=== PATIENT | male | born 1965 | race Caucasian/White ===

== ENCOUNTER 2020-04-25 11:00 | Inpatient (IN) ==
[2020-04-25] MEDS ORDERED: ONDANSETRON INJ 2 MG/ML 2 ML VIAL IV STA (11:51)
[2020-04-25] MEDS ORDERED: SODIUM CHLORIDE 0.9% 1000ML 1,000 ML IV ONE (11:51)
[2020-04-25] MEDS ORDERED: MoRPHine SULFATE 4 MG/ML 1 ML CARP\\VIAL IV STA (11:51)
[2020-04-25 12:08] LABS: Basophils # (auto) 0.01 K/uL (0-0.2); Basophils % (auto) 0.1 %; Eosinophils # (auto) 0.07 K/uL (0-0.5); Eosinophils % (auto) 0.4 %; Hematocrit (blood only) 49.5 % (42-52); Hemoglobin 17.1 g/dL (14.0-18.0); Immature Granulocytes # (auto) 0.04 K/uL (0.00-0.02); Immature Granulocytes % (auto) 0.2 %; Lymphocytes # (auto) 1.18 K/uL (1.2-3.4); Lymphocytes % (auto) 6.8 %; Mean Corpuscular Hemoglobin 30.7 pg (25-34); Mean Corpuscular Hgb Conc 34.5 g/dL (32-36); Mean Corpuscular Volume 88.9 fL (80-100); Mean Platelet Volume 10.5 fL (7.4-10.4); Monocytes # (auto) 1.34 K/uL (0.11-0.59); Monocytes % (auto) 7.7 %; Neutrophils # (auto) 14.83 K/uL (1.4-6.5); Neutrophils % (auto) 84.8 %; Platelet Count 242 K/uL (130-400); RDW Coefficient of Variation 12.8 % (11.5-14.5); RDW Standard Deviation 41.3 fL (36.4-46.3); Red Blood Count 5.57 M/uL (4.7-6.1); White Blood Count 17.47 K/uL (4.8-10.8)
[2020-04-25 12:14] LABS: Albumin Level 4.3 gm/dl (3.4-5.0); BUN Creatinine Ratio 13.6 (10-20); Calcium 9.2 mg/dl (8.5-10.1); Creatinine Clr Calc Pharmacy 74.5 ml/min; Est GFR (African American) 83.5; Potassium 3.8 mmol/L (3.5-5.1)
[2020-04-25 12:17] LABS: Bilirubin,Total 0.9 mg/dl (0.2-1); Globulin 4.2 gm/dl (2.5-4.0); Total Protein 8.5 gm/dl (6.4-8.2)
[2020-04-25] MEDS ORDERED: IOVERSOL 100ml IV ONE (12:48)
--- NOTE | 2020-04-25 13:11 | CT Scan Report ---
CT SCAN OF THE ABDOMEN AND PELVIS WITH IV CONTRAST CLINICAL HISTORY: Generalized abdominal pain. COMPARISON STUDY: No priors. TECHNIQUE: Following the IV administration of 94 cc of Optiray 320, CT scan of the abdomen and pelvi s is performed from the lung bases to the proximal femora. Images are reviewed in the axial, sagittal , and coronal planes. IV contrast was administered without complication. A dose lowering technique wa s utilized adhering to the principles of ALARA. CT DOSE: 450.19 mGy.cm FINDINGS: Lung bases: The heart is normal in size and without pericardial effusion. The lung bases are clear no ting dependent atelectasis. There is a small hiatal hernia. Liver: The contrast-enhanced liver is normal in size, contour, and attenuation. There is no intrahepa tic biliary ductal dilatation. The hepatic veins and portal veins are patent. Gallbladder: Unremarkable. Spleen: Normal in size and attenuation. Pancreas: The pancreas appears edematous. There is peripancreatic stranding and trace fluid, and the appearance is consistent with acute pancreatitis. No organized peripancreatic fluid collection is bernadette ntified. The splenic vein is patent. There is a 1.6 cm low-attenuation focus in the pancreatic tail s een on image #110. This appears to be contiguous with the pancreatic duct. The remainder of the gland enhances homogeneously. Adrenal glands: Unremarkable. Kidneys: The contrast enhanced kidneys are normal in size and without hydronephrosis. The kidneys enh ance symmetrically. Cortical scarring is noted in the right lower pole. Abdominal vasculature: The abdominal aorta is normal in course and caliber. Bowel: There is no bowel obstruction. Mild fecal retention is seen throughout the colon. The appendix is well-visualized and normal. Peritoneum: There is trace abdominopelvic ascites. No intraperitoneal free air is seen. There is a fa t-containing umbilical hernia. Lymphadenopathy: None. Pelvic viscera: The prostate gland is mildly enlarged and heterogeneous. The bladder is normal as vis ualized. Skeletal structures: No lytic or blastic lesions are seen. Chronic posttraumatic deformity is noted i n the right pubic ring. IMPRESSION: 1. Findings are consistent with acute pancreatitis. 2. There is a small volume of abdominopelvic ascites. 3. There is a 1.6 cm low-attenuation focus identified in the pancreatic tail. 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 A small developing pseudocy st could appear similar. Necrosis is considered much less likely due to lack of surrounding inflammat ory change. Attention at follow-up is recommended. 4. The remainder of the pancreas enhances homogeneously. The splenic vein is patent. ACT 112: Negative or not required by law. Electronically signed by: Nicolas Garcia M.D. 04/25/2020 1:10 PM
--- NOTE | 2020-04-25 14:12 | History & Physical Report ---
Date of Service April 25, 2020 Assessment & Plan (1) Acute pancreatitis: This is a 54yo M with no known past medical history who presents with abdominal pain that woke him up yesterday morning found to have acute pancreatitis. -Afebrile and hemodynamically stable. Leukocytosis of 17.47. Lipase elevated at 3702. LFTs wnl -Non-smoker, rarely drinks etoh, still has GB -CT abdomen pelvis with IV contrast showing findings consistent with acute pancreatitis as well as a small volume of abdominopelvic ascites -NPO, LR @ 200 ml/hr, antiemetics, pain control, fasting lipid panel in AM -Routine GI consult (2) Abnormal CT of the abdomen: CTAP also with a 1.6 cm low-attenuation focus identified in the pancreatic tail. 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 Discussed with GI, who will coordinate EUS as outpatient as needed DVT Ppx: SQ lovenox Code status: FULL PCP: Katalina Dispo: Admitted to med/surg. Plan to return home once medically stable. Patient seen in collaboration with Dr. Mcmahon Please see addendum. History of Present Illness Chief Complaint: abd pain Primary Care Provider: Lazaro Darden DO This is a 54yo M with no known past medical history who presents with abdominal pain that woke him up yesterday morning. Describes pain as centrally located with constant aching. Pain is nonradiating. Associated with some nausea but no vomiting or diarrhea. Has had a decreased appetite since then, eating a small amount of a bagel and pizza. Decreased p.o. intake of fluids. Last bowel movement was Friday and patient took MiraLAX yesterday. Is a non-smoker. Drinks alcohol socially but has not had any recently. Still has gallbladder. Denies any previous episodes of pancreatitis. No fever, chills, lightheadedness, visual changes, chest pain, shortness of breath, dysuria or diarrhea. No jaundice or unintentional weight loss. In ED, patient is afebrile and hemodynamically stable. Leukocytosis of 17.47. Lipase elevated at 3702. CT abdomen pelvis with IV contrast showing findings consistent with acute pancreatitis as well as a small volume of abdominopelvic ascites. There is a 1.6 cm low-attenuation focus identified in the pancreatic tail. 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 Allergies Allergy/AdvReac Type Severity Reaction Status Date / Time hornet venom AdvReac Severe Anaphylaxis Unverified 04/25/20 13:51 Home Medications Home Medications Medication Instructions Recorded Confirmed Type acetaminophen [Tylenol Extra 500 mg PO Q6H PRN 04/25/20 04/25/20 History Strength] Past Med/Surg History Medical History Diverticulosis Surgical History History of colonoscopy Family History Other Family history unknown Social History Smoking Status: Never smoker Hx Alcohol Use: Yes Alcohol type: beer Alcohol Intake Frequency: Monthly or Less Hx Substance Use: No Preferred Language: Turkmen Communication Ability: Effective Language Assistant Required: No Beliefs That Will Affect Care: None marital status: Current Living Situation: Spouse current occupational status: unemployed Other Information That Helps Us Care for You: No Feels Safe at Home: Yes Safety Concerns: Feels Safe At This Time Review of Systems Review of Systems: At least ten systems reviewed and negative except as noted in the HPI. Physical Exam Physical Exam: General Appearance: WD/WN, vitals as above, NAD, sitting up in bed, pleasant, conversing easily Head: normocephalic, atraumatic Eyes: normal inspection, PERRL, conjunctivae normal, anicteric sclerae ENT: external ear and nose normal, oropharynx normal Neck: normal visual inspection, trachea midline, no thyromegaly Respiratory: normal respiratory effort, lungs clear to auscultation, no wheeze, rales, rhonchi. No accessory muscle use Cardiovascular: regular rate, rhythm, no murmur appreciated, normal peripheral pulses, no BLE edema. Vessels: no JVD Chest: normal inspection of chest Abdomen/GI: normal bowel sounds, soft, diffusely TTP but no guarding, no hepatosplenomegaly Extremities/Musculoskeletal: no cyanosis or clubbing, extremities motor strength 5/5 Neurologic: PERRL, EOMI, accommodation nl, no face palsy, no dysarthria, CN's II-XI intact bilaterally and moves all extremities Psychiatric: A+Ox3, euthymic affect Skin: no rashes, normal color, warm/dry Results & Data Results & Data ([facility]) Vital Signs (Past 12 Hours) Vital Signs Temp Pulse Pulse Resp BP BP Pulse Ox 04/25/20 13:38 76 18 141/91 H 98 04/25/20 11:14 36.9 C 119 H 16 150/86 H 99 Laboratory Results Short CBC 04/25/20 04/25/20 Range/Units 11:30 11:30 WBC 17.47 H (4.8-10.8) K/uL RBC 5.57 (4.7-6.1) M/uL Hgb 17.1 (14.0-18.0) g/dL Hct 49.5 (42-52) % MCV 88.9 (80-100) fL MCH 30.7 (25-34) pg MCHC 34.5 (32-36) g/dL RDW Std Deviation 41.3 (36.4-46.3) fL RDW Coeff of Marlee 12.8 (11.5-14.5) % Plt Count 242 (130-400) K/uL MPV 10.5 H (7.4-10.4) fL Immature Gran % (Auto) 0.2 % Neut % (Auto) 84.8 % Lymph % (Auto) 6.8 % [place] % (Auto) 7.7 % Eos % (Auto) 0.4 % Baso % (Auto) 0.1 % Neut # (Auto) 14.83 H (1.4-6.5) K/uL Lymph # (Auto) 1.18 L (1.2-3.4) K/uL [place] # (Auto) 1.34 H (0.11-0.59) K/uL Eos # (Auto) 0.07 (0-0.5) K/uL Baso # (Auto) 0.01 (0-0.2) K/uL Immature Gran # (Auto) 0.04 H (0.00-0.02) K/uL Sodium 138 (136-145) mmol/L Potassium 3.8 (3.5-5.1) mmol/L Chloride 106 (98-107) mmol/L Carbon Dioxide 25 (21-32) mmol/L Anion Gap 8.0 (3-11) BUN 16 (7-18) mg/dl Creatinine 1.16 (0.6-1.4) mg/dl Est Cr Clr Drug Dosing 74.5 ml/min Est GFR ( Amer) 83.5 Est GFR (Non-Af Amer) 72.0 BUN/Creatinine Ratio 13.6 (10-20) Glucose 111 H (70-99) mg/dl Calcium 9.2 (8.5-10.1) mg/dl Total Bilirubin 0.9 (0.2-1) mg/dl AST 16 (15-37) U/L ALT 28 (12-78) U/L Alkaline Phosphatase 93 (45-117) U/L Total Protein 8.5 H (6.4-8.2) gm/dl Albumin 4.3 (3.4-5.0) gm/dl Globulin 4.2 H (2.5-4.0) gm/dl Albumin/Globulin Ratio 1.0 (0.9-2) Lipase 3702 H (73-393) U/L BMP 04/25/20 11:30 Sodium 138 Potassium 3.8 Chloride 106 Carbon Dioxide 25 BUN 16 Creatinine 1.16 Glucose 111 H Calcium 9.2 Liver Function 04/25/20 Range/Units 11:30 Total Bilirubin 0.9 (0.2-1) mg/dl AST 16 (15-37) U/L ALT 28 (12-78) U/L Alkaline Phosphatase 93 (45-117) U/L Albumin 4.3 (3.4-5.0) gm/dl Diagnostic Findings CT abd/pelvis with IV contrast: IMPRESSION: 1. Findings are consistent with acute pancreatitis. 2. There is a small volume of abdominopelvic ascites. 3. There is a 1.6 cm low-attenuation focus identified in the pancreatic tail. 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 A small developing pseudocyst could appear similar. Necrosis is considered much less likely due to lack of surrounding inflammatory change. Attention at follow-up is recommended. 4. The remainder of the pancreas enhances homogeneously. The splenic vein is patent. Supervising Physician Co-Signing Physician Notes Pt was seen and examined. Agreed with Saundra PA-C exam, assessment and plan. 54yo M with no significant past medical history presents to the ER with severe abdominal pain. Pt said that the abdominal pain started yesterday. He described it as constant achiness, non radiating, grade 8 out 10. Denies any nausea, vomiting, fever, SOB and chest pain. Pain improved after received IV Morphine in the ER. CT abd/pelvis on admission showed finding consistent with acute pancreatitis. A 1.6 cm low-attenuation focus identified in the pancreatic tail. 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 A small developing pseudocyst could appear similar. Necrosis is considered much less likely due to lack of surrounding inflammatory change. Lipase on admission elevated 3702 and WBC elevated at 17K. Will continue IVF. Will consult GI. CT abd/pelvis report reviewed with patient. Will get an MRCP for further evaluation. Might need outpatient EUS to evaluate the pancreatic tail. Continue pain control and antiemetic prn. Will repeat lipase and CMP in am. Continue monitor closely. MD Salome
[2020-04-25] MEDS ORDERED: MoRPHine SULFATE 4 MG/ML 1 ML CARP\\VIAL IV PRN (14:31)
--- NOTE | 2020-04-25 14:31 | Emergency Department Note ---
History of Present Illness General Chief complaint: Abdominal Pain Stated complaint: UPPER ABD PAIN Time Seen by Provider: 04/25/20 11:21 History of Present Illness Maximum Pain Intensity: 6 54-year-old male who presents to emergency department with complaint of upper central abdominal pain since Friday morning upon awakening. The patient reports that the pain has progressively worsened. He denies any pain radiating into the back or lower abdomen. He denies chest pain or shortness of breath. The patient has had intermittent nausea, but denies any vomiting, diarrhea or urinary symptoms. The patient denies history of reflux or GERD. The patient denies any recent significant NSAIDs, alcohol or caffeine use. The patient denies any alleviating factors for the pain. He reports that the pain does seem to be worsened when walking. He rates his discomfort a 5 out of 10. The p atient reports having a colonoscopy approximately 3 months ago that showed diverticulosis. Home Medications Home Medications Medication Instructions Recorded Confirmed Type acetaminophen [Tylenol Extra 500 mg PO Q6H PRN 04/25/20 04/25/20 History Strength] Allergies Allergy/AdvReac Type Severity Reaction Status Date / Time hornet venom AdvReac Severe Anaphylaxis Unverified 04/25/20 13:51 Past Med/Surg History Medical History Diverticulosis Surgical History History of colonoscopy Family History Other Family history unknown Social History Smoking Status: Never smoker Hx Alcohol Use: Yes Alcohol type: beer Alcohol Intake Frequency: Monthly or Less Hx Substance Use: No Preferred Language: Bahraini Communication Ability: Effective Car Painter Required: No Beliefs That Will Affect Care: None marital status: Current Living Situation: Spouse current occupational status: unemployed Other Information That Helps Us Care for You: No Feels Safe at Home: Yes Safety Concerns: Feels Safe At This Time Review of Systems 10 system review was performed and was negative except for pertinent positives and negatives as indicated in history of present illness Physical Exam Vital Signs Vital Signs - 24 hr 04/25/20 11:14 04/25/20 13:38 Temperature 36.9 C Temperature Source Oral Pulse Rate 119 H Pulse Rate [Apical] 76 Pulse Rhythm [Apical] Regular Pulse Strength [Apical] Normal Respiratory Rate 16 18 Respiratory Effort / Characteristics Non-Labored Spontaneous Non-Labored Respiratory Depth Normal Normal Respiratory Pattern Regular Regular Blood Pressure 150/86 H Blood Pressure [Right Arm] 141/91 H Blood Pressure Mean 107 Blood Pressure Mean [Right Arm] 107 Blood Pressure Position Sitting Blood Pressure Position [Right Arm] Sitting Pulse Oximetry 99 98 Oxygen Delivery Method Room Air Room Air Sepsis Recent Fever Within 48 Hours No Sepsis New/Unexplained Change in Mental Status No Sepsis Action Taken by Nursing No Action Required CONSTITUTIONAL: Healthy and well nourished. Alert and oriented X 3. Patient appears in moderate discomfort. HEENT: Normocephalic, atraumatic. Pupils equal, round and reactive. No scleral icterus or conjunctival injection/pallor. NECK: Full active range of motion without discomfort. LYMPHATICS: No cervical chain adenopathy. RESPIRATORY: Clear to auscultation bilaterally with no wheezing, crackles, rhonchi or stridor. CARDIOVASCULAR: Regular rate and rhythm with no murmurs, rubs or gallops. GASTROINTESTINAL: Bowel sounds present in all quadrants. Examination shows mild epigastric tenderness to palpation. No obvious hepatosplenomegaly. Negative McBurney's point tenderness. Negative CVA tenderness. No rigidity, guarding or rebound. MUSCULOSKELETAL: Full range of motion of all joints without discomfort. INTEGUMENTARY: No rash or other significant dermatologic conditions noted. HEMATOLOGIC: No ecchymosis or petechiae. PSYCHIATRIC: Positive affect. NEUROLOGIC: No focal neurologic deficits noted. Course Course Patient history and physical exam were performed. Nurse's notes were reviewed. Vital signs were reviewed, showing mild tachycardia of 119 bpm. The patient is afebrile. Blood pressure is also elevated at 150/86. IV access was established, and labs were drawn. The patient was hydrated with a liter normal saline, and was administered IV morphine and Zofran for pain and nausea. Review of labs shows an elevated white count of over 17,000 with left shift and bandemia. Additional review of labs shows an elevated lipase of 3702. Remaining electrolytes and LFTs are otherwise unremarkable. CT of the abdomen and pelvis with IV contrast is concerning for pancreatitis, and changes of the pancreatic duct concerning for possible IPMN. A developing pseudocyst was also considered. Findings were discussed with Dr. Reynaga, ED attending physician, who recommended admission. I also discussed the case with the patient, who was also in agreement with admission. [facility] Please see their dictation for further treatment and final disposition. The patient refused any analgesics while under my care. Administered Medications Acetaminophen (Acetaminophen 1000 Mg/100 Ml Iv) 1,000 mg IV Q8H PRN PRN Reason: Pain Stop: 04/28/20 14:46 Last Admin: 04/25/20 14:56 Dose: 1,000 mg Documented by: [id number] Lactated Ringer's (Lr) 1,000 mls @ 200 mls/hr IV .Q5H RICHARD Stop: 05/25/20 14:29 Last Admin: 04/25/20 14:53 Dose: 200 mls/hr Documented by: [id number] Discontinued Medications Sodium Chloride (Nss 1000ml) 1,000 mls @ 999 mls/hr IV .Q1H1M ONE Stop: 04/25/20 12:51 Last Infusion: 04/25/20 12:58 Dose: 0 mls/hr Documented by: [id number] Admin: 04/25/20 11:58 Dose: 999 mls/hr Documented by: [id number] Ioversol (Ioversol 100ml) 94 ml IV ONCE ONE Stop: 04/25/20 12:49 Last Admin: 04/25/20 12:49 Dose: 94 ml Documented by: [id number] Morphine Sulfate (Morphine Sulfate 4 Mg/Ml 1 Ml Carp\Vial) 4 mg IV NOW STA Stop: 04/25/20 11:52 Last Admin: 04/25/20 11:58 Dose: 4 mg Documented by: [id number] Ondansetron HCl (Ondansetron Inj 2 Mg/Ml 2 Ml Vial) 4 mg IV NOW STA Stop: 04/25/20 11:52 Last Admin: 04/25/20 11:58 Dose: 4 mg Documented by: [id number] Medical Decision Making Medical Records Attestation: I reviewed the patient's medical records. Home Medications Current Medication List: was personally reviewed by me Laboratory Data Attestation: I reviewed the patient's lab results. Result diagrams: 04/25/20 11:30 04/25/20 11:30 Lab Results 04/25/20 04/25/20 Range/Units 11:30 11:30 WBC 17.47 H (4.8-10.8) K/uL RBC 5.57 (4.7-6.1) M/uL Hgb 17.1 (14.0-18.0) g/dL Hct 49.5 (42-52) % MCV 88.9 (80-100) fL MCH 30.7 (25-34) pg MCHC 34.5 (32-36) g/dL RDW Std Deviation 41.3 (36.4-46.3) fL RDW Coeff of Marlee 12.8 (11.5-14.5) % Plt Count 242 (130-400) K/uL MPV 10.5 H (7.4-10.4) fL Immature Gran % (Auto) 0.2 % Neut % (Auto) 84.8 % Lymph % (Auto) 6.8 % [place] % (Auto) 7.7 % Eos % (Auto) 0.4 % Baso % (Auto) 0.1 % Neut # (Auto) 14.83 H (1.4-6.5) K/uL Lymph # (Auto) 1.18 L (1.2-3.4) K/uL [place] # (Auto) 1.34 H (0.11-0.59) K/uL Eos # (Auto) 0.07 (0-0.5) K/uL Baso # (Auto) 0.01 (0-0.2) K/uL Immature Gran # (Auto) 0.04 H (0.00-0.02) K/uL Sodium 138 (136-145) mmol/L Potassium 3.8 (3.5-5.1) mmol/L Chloride 106 (98-107) mmol/L Carbon Dioxide 25 (21-32) mmol/L Anion Gap 8.0 (3-11) BUN 16 (7-18) mg/dl Creatinine 1.16 (0.6-1.4) mg/dl Est Cr Clr Drug Dosing 74.5 ml/min Est GFR ( Amer) 83.5 Est GFR (Non-Af Amer) 72.0 BUN/Creatinine Ratio 13.6 (10-20) Glucose 111 H (70-99) mg/dl Calcium 9.2 (8.5-10.1) mg/dl Total Bilirubin 0.9 (0.2-1) mg/dl AST 16 (15-37) U/L ALT 28 (12-78) U/L Alkaline Phosphatase 93 (45-117) U/L Total Protein 8.5 H (6.4-8.2) gm/dl Albumin 4.3 (3.4-5.0) gm/dl Globulin 4.2 H (2.5-4.0) gm/dl Albumin/Globulin Ratio 1.0 (0.9-2) Lipase 3702 H (73-393) U/L Imaging Data Attestation: I personally reviewed and interpreted this imaging study as follows: My Impression: CT of the abdomen and pelvis with IV contrast shows evidence for acute pancreatitis, possible developing pseudocyst and changes of the pancreatic duct. No other acute findings such as diverticulitis, appendicitis or bowel obstruction noted. Radiologist report was also reviewed. Radiologist's Impression: CT SCAN OF THE ABDOMEN AND PELVIS WITH IV CONTRAST CLINICAL HISTORY: Generalized abdominal pain. COMPARISON STUDY: No priors. TECHNIQUE: Following the IV administration of 94 cc of Optiray 320, CT scan of the abdomen and pelvis is performed from the lung bases to the proximal femora. Images are reviewed in the axial, sagittal, and coronal planes. IV contrast was administered without complication. A dose lowering technique was utilized adhering to the principles of ALARA. CT DOSE: 450.19 mGy.cm FINDINGS: Lung bases: The heart is normal in size and without pericardial effusion. The l kimberly bases are clear noting dependent atelectasis. There is a small hiatal hernia. Liver: The contrast-enhanced liver is normal in size, contour, and attenuation. There is no intrahepatic biliary ductal dilatation. The hepatic veins and portal veins are patent. Gallbladder: Unremarkable. Spleen: Normal in size and attenuation. Pancreas: The pancreas appears edematous. There is peripancreatic stranding and trace fluid, and the appearance is consistent with acute pancreatitis. No organized peripancreatic fluid collection is identified. The splenic vein is patent. There is a 1.6 cm low-attenuation focus in the pancreatic tail seen on image #110. This appears to be contiguous with the pancreatic duct. The remainder of the gland enhances homogeneously. Adrenal glands: Unremarkable. Kidneys: The contrast enhanced kidneys are normal in size and without hydronephrosis. The kidneys enhance symmetrically. Cortical scarring is noted in the right lower pole. Abdominal vasculature: The abdominal aorta is normal in course and caliber. Bowel: There is no bowel obstruction. Mild fecal retention is seen throughout the colon. The appendix is well-visualized and normal. Peritoneum: There is trace abdominopelvic ascites. No intraperitoneal free air is seen. There is a fat-containing umbilical hernia. Lymphadenopathy: None. Pelvic viscera: The prostate gland is mildly enlarged and heterogeneous. The bladder is normal as visualized. Skeletal structures: No lytic or blastic lesions are seen. Chronic posttraumatic deformity is noted in the right pubic ring. IMPRESSION: 1. Findings are consistent with acute pancreatitis. 2. There is a small volume of abdominopelvic ascites. 3. There is a 1.6 cm low-attenuation focus identified in the pancreatic tail. 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 A small developing pseudocyst could appear similar. Necrosis is considered much less likely due to lack of surrounding inflammatory change. Attention at follow-up is recommended. 4. The remainder of the pancreas enhances homogeneously. The splenic vein is patent. Blood Pressure Blood Pressure Findings: Elevated blood pressure Blood Pressure Disposition: further management by hospitalist PRASAD Hernandez Patient presents to the emergency department with complaint of persistent upper abdominal pain and nausea. CT imaging today is concerning for pancreatitis. The patient does have an elevated lipase as well. CT imaging does not show any evidence for free air, diverticulitis, cholecystitis or appendicitis. The patient is currently afebrile, but does have an elevated white count of over 17,000 with left shift and bandemia. Infectious etiologies cannot be ruled out, but felt unlikely. I do not suspect cardiopulmonary referred pain. Impression & Plan Acute pancreatitis, Abnormal CT of the abdomen Discharge Plan Visit Data Chief Complaint: Abdominal Pain Stated Complaint: UPPER ABD PAIN ED Provider: Nicolas Reynaga ED Midlevel Provider: Perry Smyth Discharge Problem: Acute pancreatitis, Abnormal CT of the abdomen Patient Disposition: Admitted As Inpatient Discharge Instructions Interventions: ED Discharge Assessment Last Done: 04/25/20 15:13 Discharge Problem: Acute pancreatitis Qualifiers: Pancreatitis type: unspecified pancreatitis type Acute pancreatitis complication: unspecified Qualified Code(s): K85.90 - Acute pancreatitis without necrosis or infection, unspecified
[2020-04-25] MEDS: LACTATED RINGER'S 1,000 ML IV SCH ×2 (14:53→21:04)
[2020-04-25] MEDS: ACETAMINOPHEN 1000 MG/100 ML IV IV PRN ×2 (14:56→23:48)
--- NOTE | 2020-04-25 15:20 | Electrocardiogram Report ---
Test Reason : Blood Pressure : / mmHG Vent. Rate : 091 BPM Atrial Rate : 091 BPM P-R Int : 134 ms QRS Dur : 084 ms QT Int : 348 ms P-R-T Axes : 048 -01 028 degrees QTc Int : 428 ms Normal sinus rhythm Normal ECG No previous ECGs available Confirmed by Jalen Kim ([id number]) on 04/25/2020 3:20:08 PM Referred By: Lazaro Darden Confirmed By:Jalen Kim
[2020-04-25] MEDS ORDERED: ONDANSETRON INJ 2 MG/ML 2 ML VIAL IV PRN (15:40)
[2020-04-25] MEDS ORDERED: POLYETHYLENE (MIRALAX) 17 GM PACK PO PRN (15:40)
[2020-04-25] MEDS: MoRPHine SULFATE 2 MG/ML CARP IV PRN (18:58)
--- NOTE | 2020-04-25 19:04 | Magnetic Resonance Report ---
MR MRCP HISTORY: 54 years-old Male acute pancreatitis, 1.6cm focus on pancreatic tail acute severe abdominal pain with acute pancreatitis COMPARISON: CT abdomen and pelvis 04/25/2020 TECHNIQUE: MRCP without the use of IV contrast was obtained according to institutional protocol. FINDINGS: Docket Clerk localizer images demonstrate no gross extra abdominal abnormality. Study is motion degraded. Tr chicho pleural effusions. Trace abdominal ascites. Mild interstitial and peripancreatic edema compatible with acute pancreatitis. No drainable fluid collection. No pancreatic ductal dilation. No evidence o f pancreatic divisum. There is a 1.6 x 1.4 cm cystic structure within the pancreatic tail is contiguo us with the main pancreatic duct. No intrahepatic or extrahepatic biliary ductal dilation. Normal com mon bile duct, 3 mm. No choledocholithiasis or biliary stricture. Mild distention of the gallbladder. No definite cholelithiasis. No bowel dilation. There is a suspected transient intussusception involv ing a loop of jejunum within the abdominal left upper quadrant, image 21 series 6. Unremarkable soft tissues. IMPRESSION: 1. Motion degraded exam. 2. Acute pancreatitis is redemonstrated. No drainable fluid collection. 3. 1.6 cm cystic structure of the pancreatic tail is suggestive of a sidebranch IPMN. 4. No pancreatic or biliary ductal dilation. ACT 112: Negative or not required by law. The above report was generated using voice recognition software. It may contain grammatical, syntax o r spelling errors. Electronically signed by: Christopher Vizcarra M.D. 04/25/2020 7:02 PM
[2020-04-25 19:18] LABS: Appearance Urine Clear (Clear); Bacteria Urine Automated Negative (Negative); Bilirubin Urine Negative (Negative); Blood Urine Negative (Negative); Color Urine Yellow; Glucose Urine UA Negative (Negative); Ketones Urine 3+ (Negative); Leukocyte Esterase Urine Negative (Negative); Nitrite Urine Negative (Negative); Protein Urine Trace (Negative); RBC Urine Automated 0-4 /hpf (0-4); Specific Gravity Urine > 1.045 (1.000-1.030); Urobilinogen Urine Negative (Negative)
[2020-04-25] MEDS: ENOXAPARIN INJ 40 MG/0.4 ML SYR SQ SCH (21:04)
[2020-04-26] MEDS: LACTATED RINGER'S 1,000 ML IV SCH ×5 (02:15→20:13)
[2020-04-26] MEDS: MoRPHine SULFATE 2 MG/ML CARP IV PRN ×5 (04:39→23:59)
[2020-04-26 07:47] LABS: Hemoglobin 13.4 g/dL (14.0-18.0); Mean Corpuscular Hemoglobin 30.5 pg (25-34); Mean Corpuscular Hgb Conc 34.4 g/dL (32-36); Mean Corpuscular Volume 88.8 fL (80-100); Mean Platelet Volume 9.9 fL (7.4-10.4); Platelet Count 181 K/uL (130-400); RDW Coefficient of Variation 12.5 % (11.5-14.5); RDW Standard Deviation 40.7 fL (36.4-46.3); Red Blood Count 4.39 M/uL (4.7-6.1); White Blood Count 11.93 K/uL (4.8-10.8)
[2020-04-26 08:06] LABS: Albumin Level 3.1 gm/dl (3.4-5.0); BUN Creatinine Ratio 14.2 (10-20); Calcium 8.6 mg/dl (8.5-10.1); Est GFR (African American) 106.2; Est GFR (Non-African American) 91.7
[2020-04-26 08:11] LABS: Albumin Globulin Ratio 0.9 (0.9-2); Bilirubin,Total 1.1 mg/dl (0.2-1); Globulin 3.3 gm/dl (2.5-4.0); Total Protein 6.4 gm/dl (6.4-8.2)
--- NOTE | 2020-04-26 08:16 | Hospitalist Progress Note ---
Date of Service April 26, 2020 Assessment & Plan (1) Acute pancreatitis: This is a 54yo M with no known past medical history who presents with abdominal pain that woke him up yesterday morning found to have acute pancreatitis. -Afebrile and hemodynamically stable. Leukocytosis of 17.47. Lipase elevated at 3702. LFTs wnl -Non-smoker, rarely drinks etoh, still has GB -CT abdomen pelvis with IV contrast showing findings consistent with acute pancreatitis as well as a small volume of abdominopelvic ascites -NPO, LR @ 200 ml/hr, antiemetics, pain control, fasting lipid panel -Routine GI consult (2) Abnormal CT of the abdomen: CTAP also with a 1.6 cm low-attenuation focus identified in the pancreatic tail. 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 Discussed with GI, who will coordinate EUS as outpatient as needed DVT Ppx: SQ lovenox Code status: FULL PCP: Dr. Darden Dispo: Admitted to med/surg. Plan to return home once medically stable. Admission and Anticipated Discharge Date Admission Date: April 25, 2020 Subjective Patient is lying in bed, in no acute distress. He has some abdominal pain, however seems to be better controlled now. No nausea or vomiting. Had fever yesterday, now resolved. No chest pain, shortness of breath. Seen by GI, recommend IV hydration. Review of Systems Review of Systems: All systems reviewed & are unremarkable except as noted in HPI & below Constitutional: + fever (now resolved) and + chills (now resolved) Respiratory: no cough and no dyspnea Cardiovascular: no chest pain and no palpitations Gastrointestinal: + abdominal pain (upper abdominal quadrants), + nausea and + constipation; no vomiting Physical Exam Physical Exam: General Appearance: Middle-aged male lying in bed, in no acute distress, somewhat uncomfortable due to pain Head: normocephalic, atraumatic Eyes: normal inspection, PERRL, EOMI, conjunctivae normal, anicteric sclerae ENT: external ear and nose normal, oropharynx normal Neck: normal visual inspection, trachea midline, no thyromegaly Respiratory: normal respiratory effort, lungs clear to auscultation, no wheeze, rales, rhonchi. No accessory muscle use Cardiovascular: regular rate, rhythm, no murmur appreciated, normal peripheral pulses, no BLE edema. Vessels: no JVD Chest: normal inspection of chest Abdomen/GI: normal bowel sounds, soft, TTP in upper abdominal quadrants, but no guarding Extremities/Musculoskeletal: extremities motor strength 5/5, moves extremities spontaneously Neurologic: PERRL, EOMI, no face palsy, no dysarthria, moves all extremities Psychiatric: A+Ox3, euthymic affect Skin: no rashes, normal color, warm/dry Results & Data Results & Data ([facility]) Vital Signs (Past 12 Hours) Vital Signs Temp Pulse Resp BP Pulse Ox 04/26/20 07:07 37 C 97 H 16 132/83 95 04/25/20 23:00 38.4 C H 107 H 20 142/83 H 94 Laboratory Results 04/26/20 04/26/20 04/25/20 Range/Units 07:29 07:29 19:00 WBC 11.93 H (4.8-10.8) K/uL RBC 4.39 L (4.7-6.1) M/uL Hgb 13.4 L D (14.0-18.0) g/dL Hct 39.0 L (42-52) % MCV 88.8 (80-100) fL MCH 30.5 (25-34) pg MCHC 34.4 (32-36) g/dL RDW Std Deviation 40.7 (36.4-46.3) fL RDW Coeff of Marlee 12.5 (11.5-14.5) % Plt Count 181 (130-400) K/uL MPV 9.9 (7.4-10.4) fL Immature Gran % (Auto) % Neut % (Auto) % Lymph % (Auto) % [place] % (Auto) % Eos % (Auto) % Baso % (Auto) % Neut # (Auto) (1.4-6.5) K/uL Lymph # (Auto) (1.2-3.4) K/uL [place] # (Auto) (0.11-0.59) K/uL Eos # (Auto) (0-0.5) K/uL Baso # (Auto) (0-0.2) K/uL Immature Gran # (Auto) (0.00-0.02) K/uL Sodium 139 (136-145) mmol/L Potassium 4.0 (3.5-5.1) mmol/L Chloride 106 (98-107) mmol/L Carbon Dioxide 23 (21-32) mmol/L Anion Gap 10.0 (3-11) BUN 14 (7-18) mg/dl Creatinine 0.95 (0.6-1.4) mg/dl Est Cr Clr Drug Dosing 91.0 ml/min Est GFR ( Amer) 106.2 Est GFR (Non-Af Amer) 91.7 BUN/Creatinine Ratio 14.2 (10-20) Glucose 78 (70-99) mg/dl Calcium 8.6 (8.5-10.1) mg/dl Total Bilirubin 1.1 H (0.2-1) mg/dl AST 26 (15-37) U/L ALT 25 (12-78) U/L Alkaline Phosphatase 71 (45-117) U/L Total Protein 6.4 D (6.4-8.2) gm/dl Albumin 3.1 L (3.4-5.0) gm/dl Globulin 3.3 (2.5-4.0) gm/dl Albumin/Globulin Ratio 0.9 (0.9-2) Lipase 2037 H (73-393) U/L Urine Color Yellow Urine Appearance Clear (Clear) Urine pH 5.0 (4.5-7.5) Ur Specific [place] > 1.045 H (1.000-1.030) Urine Protein Trace H (Negative) Urine Glucose (UA) Negative (Negative) Urine Ketones 3+ H (Negative) Urine Blood Negative (Negative) Urine Nitrite Negative (Negative) Urine Bilirubin Negative (Negative) Urine Urobilinogen Negative (Negative) Ur Leukocyte Esterase Negative (Negative) Urine WBC (Auto) 1-5 (0-5) /hpf Urine RBC (Auto) 0-4 (0-4) /hpf U Hyaline Cast (Auto) 1-5 (0-5) /lpf U Epithel Cells (Auto) 5-10 H (0-5) /lpf Urine Bacteria (Auto) Negative (Negative) 04/25/20 04/25/20 Range/Units 11:30 11:30 WBC 17.47 H (4.8-10.8) K/uL RBC 5.57 (4.7-6.1) M/uL Hgb 17.1 (14.0-18.0) g/dL Hct 49.5 (42-52) % MCV 88.9 (80-100) fL MCH 30.7 (25-34) pg MCHC 34.5 (32-36) g/dL RDW Std Deviation 41.3 (36.4-46.3) fL RDW Coeff of Marlee 12.8 (11.5-14.5) % Plt Count 242 (130-400) K/uL MPV 10.5 H (7.4-10.4) fL Immature Gran % (Auto) 0.2 % Neut % (Auto) 84.8 % Lymph % (Auto) 6.8 % [place] % (Auto) 7.7 % Eos % (Auto) 0.4 % Baso % (Auto) 0.1 % Neut # (Auto) 14.83 H (1.4-6.5) K/uL Lymph # (Auto) 1.18 L (1.2-3.4) K/uL [place] # (Auto) 1.34 H (0.11-0.59) K/uL Eos # (Auto) 0.07 (0-0.5) K/uL Baso # (Auto) 0.01 (0-0.2) K/uL Immature Gran # (Auto) 0.04 H (0.00-0.02) K/uL Sodium 138 (136-145) mmol/L Potassium 3.8 (3.5-5.1) mmol/L Chloride 106 (98-107) mmol/L Carbon Dioxide 25 (21-32) mmol/L Anion Gap 8.0 (3-11) BUN 16 (7-18) mg/dl Creatinine 1.16 (0.6-1.4) mg/dl Est Cr Clr Drug Dosing 74.5 ml/min Est GFR ( Amer) 83.5 Est GFR (Non-Af Amer) 72.0 BUN/Creatinine Ratio 13.6 (10-20) Glucose 111 H (70-99) mg/dl Calcium 9.2 (8.5-10.1) mg/dl Total Bilirubin 0.9 (0.2-1) mg/dl AST 16 (15-37) U/L ALT 28 (12-78) U/L Alkaline Phosphatase 93 (45-117) U/L Total Protein 8.5 H (6.4-8.2) gm/dl Albumin 4.3 (3.4-5.0) gm/dl Globulin 4.2 H (2.5-4.0) gm/dl Albumin/Globulin Ratio 1.0 (0.9-2) Lipase 3702 H (73-393) U/L Urine Color Urine Appearance (Clear) Urine pH (4.5-7.5) Ur Specific [place] (1.000-1.030) Urine Protein (Negative) Urine Glucose (UA) (Negative) Urine Ketones (Negative) Urine Blood (Negative) Urine Nitrite (Negative) Urine Bilirubin (Negative) Urine Urobilinogen (Negative) Ur Leukocyte Esterase (Negative) Urine WBC (Auto) (0-5) /hpf Urine RBC (Auto) (0-4) /hpf U Hyaline Cast (Auto) (0-5) /lpf U Epithel Cells (Auto) (0-5) /lpf Urine Bacteria (Auto) (Negative) Medications Administered Current Inpatient Medications Acetaminophen (Acetaminophen 1000 Mg/100 Ml Iv) 1,000 mg IV Q8H PRN PRN Reason: Pain Stop: 04/28/20 14:46 Last Admin: 04/25/20 23:48 Dose: 1,000 mg Documented by: Enoxaparin Sodium (Enoxaparin Inj 40 Mg/0.4 Ml Syr) 40 mg SQ HS RICHARD Stop: 05/25/20 20:59 Last Admin: 04/25/20 21:04 Dose: 40 mg Documented by: Lactated Ringer's (Lr) 1,000 mls @ 200 mls/hr IV .Q5H RICHARD Stop: 05/25/20 14:29 Last Admin: 04/26/20 07:25 Dose: 200 mls/hr Documented by: Morphine Sulfate (Morphine Sulfate 2 Mg/Ml Carp) 2 mg IV Q3H PRN PRN Reason: Pain Stop: 05/09/20 15:39 Last Admin: 04/26/20 04:39 Dose: 2 mg Documented by: Ondansetron HCl (Ondansetron Inj 2 Mg/Ml 2 Ml Vial) 4 mg IV Q6H PRN PRN Reason: Nausea Stop: 05/25/20 15:39 Polyethylene Glycol (Polyethylene (Miralax) 17 Gm Pack) 17 gm PO DAILY PRN PRN Reason: Constipation Stop: 05/25/20 15:39
--- NOTE | 2020-04-26 09:53 | Gastrointestinal Consultation ---
Date of Consultation April 26, 2020 Assessment & Plan (1) Acute pancreatitis: 54 year old male with abrupt onset upper abd pain that woke him from his sleep both biochemical and diagnostic imaging concerning for acute pancreatitis. No gallstones or biliary disease appreciated on CT or MR. LFTs normal. He does have a panc tail IPMN vs cyst. No prior weight loss. Panc Etiology unclear - Check triglycerides - NPO for bowel rest - Continue IV LR for 48 hours - antietmics PRN - analgesia PRN - Will need OP EUS in 4-6 weeks Thank you for allowing us to participate in the care of this patient. Please call with any acute changes, questions or concerns. Please see addendum below with additional recommendation from my supervising physician. Supervising Physician Co-Signing Physician Notes I have personally seen and examined the patient with LACY Hardin. Her note reflects my exam and findings. I agree with her impression and plan. The IPMN is most likely cause since he has no ETOH hx and is on no meds. Cont IV hydration; great response to current hydration ( H/H and creatinine drop). Jimmie Piña M.D. History of Present Illness Reason for Consultation: Pancreatitis Requesting Physician: Chayito Attending Physician: Octavio Stratton MD History of Present Illness 54 year old male without any past medical history who presents with abd pain that woke him up from his sleep. Suggests he has never had this pain before. Constant. Sharp and acing. Does not radiate. Associated with nausea but no vomiting. No GERD. Has been constipated since pain started. In ED, patient is afebrile and hemodynamically stable. Leukocytosis of 17.47. Lipase elevated at 3702. CT abdomen pelvis with IV contrast showing findings consistent with acute pancreatitis as well as a small volume of abdominopelvic ascites. There is a 1.6 cm low-attenuation focus identified in the pancreatic tail. 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 MRCP review this AM without any acute biliary concerns or obstruction. LFTs normal. No new meds No herbals No OTCs No street drugs No tobacco Uses ETOH rarely, last use was about 1 months ago Allergies Allergy/AdvReac Type Severity Reaction Status Date / Time hornet venom AdvReac Severe Anaphylaxis Unverified 04/25/20 13:51 Home Medications Home Medications Medication Instructions Recorded Confirmed Type acetaminophen [Tylenol Extra 500 mg PO Q6H PRN 04/25/20 04/25/20 History Strength] Patient History Medical History Diverticulosis Surgical History History of colonoscopy Family History Other Family history unknown Social History Smoking Status: Never smoker Hx Alcohol Use: Yes Alcohol type: beer Alcohol Intake Frequency: Monthly or Less Hx Substance Use: No Preferred Language: Bengali Communication Ability: Effective Escrow Representative Required: No Beliefs That Will Affect Care: None marital status: Current Living Situation: Spouse current occupational status: unemployed Other Information That Helps Us Care for You: No Feels Safe at Home: Yes Safety Concerns: Feels Safe At This Time Review of Systems Constitutional: no fever and no fatigue Respiratory: no cough and no dyspnea Cardiovascular: no chest pain and no dyspnea Gastrointestinal: + abdominal pain and + constipation; no coffee ground emesis, no hematemesis, no blood in stools and no melena Physical Exam Constitutional: well developed and well nourished; no acute distress Neck: trachea midline Respiratory: normal respiratory effort Gastrointestinal (Abdomen): Inspection/Auscultation: normal bowel sounds Percussion/Palpation: + abdomen tender and abdomen soft; no guarding and abdomen not rigid Skin: no rashes, warm and dry Results & Data ([facility]) Vital Signs (Past 12 Hours) Vital Signs Temp Pulse Resp BP Pulse Ox 04/26/20 07:07 37 C 97 H 16 132/83 95 04/25/20 23:00 38.4 C H 107 H 20 142/83 H 94 Laboratory Results 04/26/20 04/26/20 04/25/20 Range/Units 07:29 07:29 19:00 WBC 11.93 H (4.8-10.8) K/uL RBC 4.39 L (4.7-6.1) M/uL Hgb 13.4 L D (14.0-18.0) g/dL Hct 39.0 L (42-52) % MCV 88.8 (80-100) fL MCH 30.5 (25-34) pg MCHC 34.4 (32-36) g/dL RDW Std Deviation 40.7 (36.4-46.3) fL RDW Coeff of Marlee 12.5 (11.5-14.5) % Plt Count 181 (130-400) K/uL MPV 9.9 (7.4-10.4) fL Immature Gran % (Auto) % Neut % (Auto) % Lymph % (Auto) % [place] % (Auto) % Eos % (Auto) % Baso % (Auto) % Neut # (Auto) (1.4-6.5) K/uL Lymph # (Auto) (1.2-3.4) K/uL [place] # (Auto) (0.11-0.59) K/uL Eos # (Auto) (0-0.5) K/uL Baso # (Auto) (0-0.2) K/uL Immature Gran # (Auto) (0.00-0.02) K/uL Sodium 139 (136-145) mmol/L Potassium 4.0 (3.5-5.1) mmol/L Chloride 106 (98-107) mmol/L Carbon Dioxide 23 (21-32) mmol/L Anion Gap 10.0 (3-11) BUN 14 (7-18) mg/dl Creatinine 0.95 (0.6-1.4) mg/dl Est Cr Clr Drug Dosing 91.0 ml/min Est GFR ( Amer) 106.2 Est GFR (Non-Af Amer) 91.7 BUN/Creatinine Ratio 14.2 (10-20) Glucose 78 (70-99) mg/dl Calcium 8.6 (8.5-10.1) mg/dl Total Bilirubin 1.1 H (0.2-1) mg/dl AST 26 (15-37) U/L ALT 25 (12-78) U/L Alkaline Phosphatase 71 (45-117) U/L Total Protein 6.4 D (6.4-8.2) gm/dl Albumin 3.1 L (3.4-5.0) gm/dl Globulin 3.3 (2.5-4.0) gm/dl Albumin/Globulin Ratio 0.9 (0.9-2) Lipase 2037 H (73-393) U/L Urine Color Yellow Urine Appearance Clear (Clear) Urine pH 5.0 (4.5-7.5) Ur Specific [place] > 1.045 H (1.000-1.030) Urine Protein Trace H (Negative) Urine Glucose (UA) Negative (Negative) Urine Ketones 3+ H (Negative) Urine Blood Negative (Negative) Urine Nitrite Negative (Negative) Urine Bilirubin Negative (Negative) Urine Urobilinogen Negative (Negative) Ur Leukocyte Esterase Negative (Negative) Urine WBC (Auto) 1-5 (0-5) /hpf Urine RBC (Auto) 0-4 (0-4) /hpf U Hyaline Cast (Auto) 1-5 (0-5) /lpf U Epithel Cells (Auto) 5-10 H (0-5) /lpf Urine Bacteria (Auto) Negative (Negative) 04/25/20 04/25/20 Range/Units 11:30 11:30 WBC 17.47 H (4.8-10.8) K/uL RBC 5.57 (4.7-6.1) M/uL Hgb 17.1 (14.0-18.0) g/dL Hct 49.5 (42-52) % MCV 88.9 (80-100) fL MCH 30.7 (25-34) pg MCHC 34.5 (32-36) g/dL RDW Std Deviation 41.3 (36.4-46.3) fL RDW Coeff of Marlee 12.8 (11.5-14.5) % Plt Count 242 (130-400) K/uL MPV 10.5 H (7.4-10.4) fL Immature Gran % (Auto) 0.2 % Neut % (Auto) 84.8 % Lymph % (Auto) 6.8 % [place] % (Auto) 7.7 % Eos % (Auto) 0.4 % Baso % (Auto) 0.1 % Neut # (Auto) 14.83 H (1.4-6.5) K/uL Lymph # (Auto) 1.18 L (1.2-3.4) K/uL [place] # (Auto) 1.34 H (0.11-0.59) K/uL Eos # (Auto) 0.07 (0-0.5) K/uL Baso # (Auto) 0.01 (0-0.2) K/uL Immature Gran # (Auto) 0.04 H (0.00-0.02) K/uL Sodium 138 (136-145) mmol/L Potassium 3.8 (3.5-5.1) mmol/L Chloride 106 (98-107) mmol/L Carbon Dioxide 25 (21-32) mmol/L Anion Gap 8.0 (3-11) BUN 16 (7-18) mg/dl Creatinine 1.16 (0.6-1.4) mg/dl Est Cr Clr Drug Dosing 74.5 ml/min Est GFR ( Amer) 83.5 Est GFR (Non-Af Amer) 72.0 BUN/Creatinine Ratio 13.6 (10-20) Glucose 111 H (70-99) mg/dl Calcium 9.2 (8.5-10.1) mg/dl Total Bilirubin 0.9 (0.2-1) mg/dl AST 16 (15-37) U/L ALT 28 (12-78) U/L Alkaline Phosphatase 93 (45-117) U/L Total Protein 8.5 H (6.4-8.2) gm/dl Albumin 4.3 (3.4-5.0) gm/dl Globulin 4.2 H (2.5-4.0) gm/dl Albumin/Globulin Ratio 1.0 (0.9-2) Lipase 3702 H (73-393) U/L Urine Color Urine Appearance (Clear) Urine pH (4.5-7.5) Ur Specific [place] (1.000-1.030) Urine Protein (Negative) Urine Glucose (UA) (Negative) Urine Ketones (Negative) Urine Blood (Negative) Urine Nitrite (Negative) Urine Bilirubin (Negative) Urine Urobilinogen (Negative) Ur Leukocyte Esterase (Negative) Urine WBC (Auto) (0-5) /hpf Urine RBC (Auto) (0-4) /hpf U Hyaline Cast (Auto) (0-5) /lpf U Epithel Cells (Auto) (0-5) /lpf Urine Bacteria (Auto) (Negative) (1) Acute pancreatitis Acute pancreatitis complication: unspecified Pancreatitis type: unspecified pancreatitis type Qualified Code(s): K85.90 - Acute pancreatitis without necrosis or infection, unspecified
[2020-04-26 12:08] LABS: Chol HDL Ratio 4; Cholesterol 133 mg/dl (0-200); HDL Cholesterol 34 mg/dl; LDL Cholesterol Calculated 74 mg/dl; Triglycerides 123 mg/dl (0-150); VLDL Cholesterol 25 mg/dl
[2020-04-26] MEDS: ENOXAPARIN INJ 40 MG/0.4 ML SYR SQ SCH (20:14)
[2020-04-27] MEDS: LACTATED RINGER'S 1,000 ML IV SCH ×6 (03:17→23:15)
[2020-04-27] MEDS: MoRPHine SULFATE 2 MG/ML CARP IV PRN ×5 (04:34→23:16)
[2020-04-27 06:22] LABS: Hematocrit (blood only) 38.4 % (42-52); Hemoglobin 13.4 g/dL (14.0-18.0); Mean Corpuscular Hemoglobin 30.6 pg (25-34); Mean Corpuscular Hgb Conc 34.9 g/dL (32-36); Mean Corpuscular Volume 87.7 fL (80-100); Mean Platelet Volume 9.7 fL (7.4-10.4); Platelet Count 182 K/uL (130-400); RDW Coefficient of Variation 12.5 % (11.5-14.5); RDW Standard Deviation 40.4 fL (36.4-46.3); Red Blood Count 4.38 M/uL (4.7-6.1); White Blood Count 11.62 K/uL (4.8-10.8)
[2020-04-27 06:52] LABS: Albumin Level 2.9 gm/dl (3.4-5.0); BUN Creatinine Ratio 10.3 (10-20); Calcium 8.4 mg/dl (8.5-10.1); Est GFR (African American) 106.2; Est GFR (Non-African American) 91.7; Potassium 4.1 mmol/L (3.5-5.1)
[2020-04-27 06:55] LABS: Albumin Globulin Ratio 0.8 (0.9-2); Bilirubin,Total 0.9 mg/dl (0.2-1); Globulin 3.8 gm/dl (2.5-4.0); Total Protein 6.7 gm/dl (6.4-8.2)
--- NOTE | 2020-04-27 09:21 | Gastroenterology Progress Note ---
Date of Service April 27, 2020 Assessment & Plan (1) Acute pancreatitis: 54 year old male with abrupt onset upper abd pain that woke him from his sleep both biochemical and diagnostic imaging concerning for acute pancreatitis. No gallstones or biliary disease appreciated on CT or MR. LFTs normal. He does have a panc tail IPMN vs cyst. No prior weight loss. Panc Etiology unclear - Trial of clear liquids then can advance to low fat diet as tolerated - Continue IV LR for 48 hours - antietmics PRN - analgesia PRN - Will need OP EUS in 4-6 weeks Thank you for allowing us to participate in the care of this patient. Please call with any acute changes, questions or concerns. Please see addendum below with additional recommendation from my supervising physician. Admission and Anticipated Discharge Date Admission Date: April 25, 2020 Supervising Physician Co-Signing Physician Notes I have personally seen and examined the patient with LACY Hardin. Her note reflects my exam and findings. I agree with her impression and plan. Feeling much better. Wants to eat. Will advance diet as tolerates. Jimmie Piña M.D. Subjective Pt was seen and evaluated, chart reviewed. Persistent abd pain No nausea/vomiting Passing gas No BM yet. No fever, chills, CP, SOB. Review of Systems Gastrointestinal: + abdominal pain and + constipation; no coffee ground emesis, no hematemesis, no blood in stools and no melena Physical Exam Constitutional: well developed and well nourished; no acute distress Neck: trachea midline Respiratory: normal respiratory effort Gastrointestinal (Abdomen): Inspection/Auscultation: normal bowel sounds Percussion/Palpation: + abdomen tender and abdomen soft; no guarding and abdomen not rigid Skin: no rashes, warm and dry Results & Data ([facility]) Vital Signs (Past 12 Hours) Vital Signs Temp Pulse Resp BP BP Pulse Ox 04/27/20 08:15 37.2 C 85 18 136/80 95 04/26/20 22:24 37 C 88 20 147/82 H 95 (1) Acute pancreatitis Acute pancreatitis complication: unspecified Pancreatitis type: unspecified pancreatitis type Qualified Code(s): K85.90 - Acute pancreatitis without necrosis or infection, unspecified
--- NOTE | 2020-04-27 15:52 | Hospitalist Progress Note ---
Date of Service April 27, 2020 Assessment & Plan (1) Acute pancreatitis: This is a 54yo M with no known past medical history who presents with abdominal pain that woke him up yesterday morning found to have acute pancreatitis. -Afebrile and hemodynamically stable. Leukocytosis of 17.47. Lipase elevated at 3702. LFTs wnl -Non-smoker, rarely drinks etoh, still has GB -CT abdomen pelvis with IV contrast showing findings consistent with acute pancreatitis as well as a small volume of abdominopelvic ascites -Was on n.p.o. and receiving clears following that -Lipid profile has been unremarkable -Lipase level has normalized as of this morning -Appreciate GI input and recommendation -Advance diet as tolerated -Likely discharge tomorrow (2) Abnormal CT of the abdomen: CTAP also with a 1.6 cm low-attenuation focus identified in the pancreatic tail. 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 Discussed with GI, who will coordinate EUS as outpatient as needed -GI input and recommendation -We will have outpatient EUS DVT Ppx: SQ lovenox Code status: FULL PCP: Dr. Darden Dispo: Admitted to med/surg. Plan to return home once medically stable. Admission and Anticipated Discharge Date Admission Date: April 25, 2020 Subjective 04/27/2020 The patient was seen and examined in medical floor He still complains to have abdominal pain without any nausea and or vomiting He has been tolerating clears orally Denies any fever and/or chills Review of Systems Review of Systems: All systems reviewed and are unremarkable except as noted below Gastrointestinal: + abdominal pain; no nausea and no vomiting Bowel not moved Physical Exam Physical Exam: Lying in bed with some discomfort due to abdominal pain Constitutional: well developed, well nourished, + acute distress and + ill appearing Eyes: PERRL, conjunctivae normal, anicteric sclerae ENMT: external ear and nose normal, oropharynx normal Neck: trachea midline, no thyromegaly Respiratory: normal respiratory effort and + respiratory distress Auscultation: lungs clear to auscultation bilaterally Cardiovascular: Rate/Rhythm: regular rate and regular rhythm Heart Sounds: no murmur Palpation: normal PMI Gastrointestinal (Abdomen): Inspection/Auscultation: abdomen normal to inspection, + abdomen distended and normal bowel sounds Percussion/Palpation: + abdomen tender (Minimally in the epigastrium); no guarding Neurologic: moves all extremities; no focal motor deficits Lymphatic: no cervical or axillary lymphadenopathy Results & Data Results & Data ([facility]) Vital Signs (Past 12 Hours) Vital Signs Temp Pulse Resp BP Pulse Ox 04/27/20 15:08 36.9 C 91 H 18 151/92 H 97 04/27/20 08:15 37.2 C 85 18 136/80 95 Laboratory Results Short CBC 04/27/20 Range/Units 06:00 WBC 11.62 H (4.8-10.8) K/uL Hgb 13.4 L (14.0-18.0) g/dL Hct 38.4 L (42-52) % Plt Count 182 (130-400) K/uL BMP 04/27/20 06:00 Sodium 136 Potassium 4.1 Chloride 104 Carbon Dioxide 25 BUN 10 Creatinine 0.95 Glucose 82 Calcium 8.4 L Liver Function 04/27/20 Range/Units 06:00 Total Bilirubin 0.9 (0.2-1) mg/dl AST 14 L (15-37) U/L ALT 19 (12-78) U/L Alkaline Phosphatase 72 (45-117) U/L Albumin 2.9 L (3.4-5.0) gm/dl Medications Administered Current Inpatient Medications Acetaminophen (Acetaminophen 1000 Mg/100 Ml Iv) 1,000 mg IV Q8H PRN PRN Reason: Pain Stop: 04/28/20 14:46 Last Admin: 04/25/20 23:48 Dose: 1,000 mg Documented by: Enoxaparin Sodium (Enoxaparin Inj 40 Mg/0.4 Ml Syr) 40 mg SQ HS RICHARD Stop: 05/25/20 20:59 Last Admin: 04/26/20 20:14 Dose: 40 mg Documented by: Lactated Ringer's (Lr) 1,000 mls @ 200 mls/hr IV .Q5H RICHARD Stop: 05/25/20 14:29 Last Admin: 04/27/20 13:14 Dose: 200 mls/hr Documented by: Morphine Sulfate (Morphine Sulfate 2 Mg/Ml Carp) 2 mg IV Q3H PRN PRN Reason: Pain Stop: 05/09/20 15:39 Last Admin: 04/27/20 11:50 Dose: 2 mg Documented by: Ondansetron HCl (Ondansetron Inj 2 Mg/Ml 2 Ml Vial) 4 mg IV Q6H PRN PRN Reason: Nausea Stop: 05/25/20 15:39 Polyethylene Glycol (Polyethylene (Miralax) 17 Gm Pack) 17 gm PO DAILY PRN PRN Reason: Constipation Stop: 05/25/20 15:39
[2020-04-27] MEDS: ENOXAPARIN INJ 40 MG/0.4 ML SYR SQ SCH (21:50)
[2020-04-28] MEDS: LACTATED RINGER'S 1,000 ML IV SCH ×2 (04:12→09:14)
[2020-04-28] MEDS: MoRPHine SULFATE 2 MG/ML CARP IV PRN (04:12)
[2020-04-28 05:53] LABS: Basophils # (auto) 0.02 K/uL (0-0.2); Basophils % (auto) 0.2 %; Eosinophils # (auto) 0.42 K/uL (0-0.5); Eosinophils % (auto) 4.2 %; Hematocrit (blood only) 36.5 % (42-52); Hemoglobin 12.8 g/dL (14.0-18.0); Immature Granulocytes # (auto) 0.02 K/uL (0.00-0.02); Immature Granulocytes % (auto) 0.2 %; Lymphocytes # (auto) 0.88 K/uL (1.2-3.4); Lymphocytes % (auto) 8.8 %; Mean Corpuscular Hemoglobin 30.7 pg (25-34); Mean Corpuscular Hgb Conc 35.1 g/dL (32-36); Mean Corpuscular Volume 87.5 fL (80-100); Mean Platelet Volume 9.7 fL (7.4-10.4); Monocytes # (auto) 0.92 K/uL (0.11-0.59); Monocytes % (auto) 9.2 %; Neutrophils # (auto) 7.76 K/uL (1.4-6.5); Neutrophils % (auto) 77.4 %; Platelet Count 188 K/uL (130-400); RDW Coefficient of Variation 12.6 % (11.5-14.5); RDW Standard Deviation 40.6 fL (36.4-46.3); Red Blood Count 4.17 M/uL (4.7-6.1); White Blood Count 10.02 K/uL (4.8-10.8)
[2020-04-28 06:11] LABS: Albumin Level 2.7 gm/dl (3.4-5.0); BUN Creatinine Ratio 6.2 (10-20); Calcium 8.6 mg/dl (8.5-10.1); Est GFR (African American) 111.9; Est GFR (Non-African American) 96.6; Magnesium 2.2 mg/dl (1.8-2.4); Potassium 3.9 mmol/L (3.5-5.1)
[2020-04-28 06:13] LABS: Albumin Globulin Ratio 0.8 (0.9-2); Bilirubin,Total 0.9 mg/dl (0.2-1); Globulin 3.6 gm/dl (2.5-4.0); Phosphorus 2.3 mg/dl (2.5-4.9); Total Protein 6.3 gm/dl (6.4-8.2)
[2020-04-28] MEDS: ACETAMINOPHEN 1000 MG/100 ML IV IV PRN (08:16)
--- NOTE | 2020-04-28 11:00 | Hospitalist Progress Note ---
Date of Service April 28, 2020 Assessment & Plan (1) Acute pancreatitis: This is a 54yo M with no known past medical history who presents with abdominal pain that woke him up yesterday morning found to have acute pancreatitis. -Afebrile and hemodynamically stable. Leukocytosis of 17.47. Lipase elevated at 3702. LFTs wnl -Non-smoker, rarely drinks etoh, still has GB -CT abdomen pelvis with IV contrast showing findings consistent with acute pancreatitis as well as a small volume of abdominopelvic ascites -Was on n.p.o. and receiving clears following that -Lipid profile has been unremarkable -Lipase level has normalized as of this morning -Appreciate GI input and recommendation -Tolerating regular diet -Has been ambulating without any difficulties -He will be discharged home this afternoon (2) Abnormal CT of the abdomen: CTAP also with a 1.6 cm low-attenuation focus identified in the pancreatic tail. 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 Discussed with GI, who will coordinate EUS as outpatient as needed -GI input and recommendation -We will have outpatient EUS as an outpatient DVT Ppx: SQ lovenox Code status: FULL PCP: Dr. Darden Dispo: Admitted to med/surg. Plan to return home once medically stable. Admission and Anticipated Discharge Date Admission Date: April 25, 2020 Subjective 04/27/2020 The patient was seen and examined in medical floor He still complains to have abdominal pain without any nausea and or vomiting He has been tolerating clears orally Denies any fever and/or chills 04/28/2020 Patient was seen and examined in medical floor He has been feeling a lot better today Has minimal abdominal discomfort and has been tolerating regular diet He has been ambulating without any difficulty Review of Systems Review of Systems: All systems reviewed and are unremarkable except as noted below Constitutional: no fever (now resolved) and no chills (now resolved) Gastrointestinal: + abdominal pain (Minimal abdominal discomfort, no pain); no nausea and no vomiting Bowel not moved Physical Exam Physical Exam: Sitting on a chair without any acute distress Constitutional: well developed and well nourished; no acute distress and not ill appearing Eyes: PERRL, conjunctivae normal, anicteric sclerae ENMT: external ear and nose normal, oropharynx normal Neck: trachea midline, no thyromegaly Respiratory: normal respiratory effort and + respiratory distress Auscultation: lungs clear to auscultation bilaterally Cardiovascular: Rate/Rhythm: regular rate and regular rhythm Heart Sounds: no murmur Palpation: normal PMI Gastrointestinal (Abdomen): Inspection/Auscultation: abdomen normal to inspection and normal bowel sounds; abdomen not distended Percussion/Palpation: + abdomen tender (Minimally in the epigastrium); no guarding Musculoskeletal: No acute arthritis in any joints Neurologic: moves all extremities; no focal motor deficits Lymphatic: no cervical or axillary lymphadenopathy Results & Data Results & Data ([facility]) Vital Signs (Past 12 Hours) Vital Signs Temp Pulse Resp BP Pulse Ox 04/28/20 07:33 37.2 C 81 16 153/89 H 92 04/27/20 23:14 37.4 C 89 16 149/84 H 92 Laboratory Results Short CBC 04/28/20 Range/Units 05:28 WBC 10.02 (4.8-10.8) K/uL Hgb 12.8 L (14.0-18.0) g/dL Hct 36.5 L (42-52) % Plt Count 188 (130-400) K/uL BMP 04/28/20 05:28 Sodium 141 Potassium 3.9 Chloride 106 Carbon Dioxide 30 BUN 6 L Creatinine 0.91 Glucose 113 H Calcium 8.6 Liver Function 04/28/20 Range/Units 05:28 Total Bilirubin 0.9 (0.2-1) mg/dl AST 15 (15-37) U/L ALT 20 (12-78) U/L Alkaline Phosphatase 73 (45-117) U/L Albumin 2.7 L (3.4-5.0) gm/dl Medications Administered Current Inpatient Medications Acetaminophen (Acetaminophen 1000 Mg/100 Ml Iv) 1,000 mg IV Q8H PRN PRN Reason: Pain Stop: 04/28/20 14:46 Last Admin: 04/28/20 08:16 Dose: 1,000 mg Documented by: Enoxaparin Sodium (Enoxaparin Inj 40 Mg/0.4 Ml Syr) 40 mg SQ HS RICHARD Stop: 05/25/20 20:59 Last Admin: 04/27/20 21:50 Dose: 40 mg Documented by: Lactated Ringer's (Lr) 1,000 mls @ 200 mls/hr IV .Q5H RICHARD Stop: 05/25/20 14:29 Last Admin: 04/28/20 09:14 Dose: 200 mls/hr Documented by: Morphine Sulfate (Morphine Sulfate 2 Mg/Ml Carp) 2 mg IV Q3H PRN PRN Reason: Pain Stop: 05/09/20 15:39 Last Admin: 04/28/20 04:12 Dose: 2 mg Documented by: Ondansetron HCl (Ondansetron Inj 2 Mg/Ml 2 Ml Vial) 4 mg IV Q6H PRN PRN Reason: Nausea Stop: 05/25/20 15:39 Polyethylene Glycol (Polyethylene (Miralax) 17 Gm Pack) 17 gm PO DAILY PRN PRN Reason: Constipation Stop: 05/25/20 15:39
--- NOTE | 2020-04-29 08:34 | Discharge Summary ---
Date of Service April 29, 2020 Admission HPI Per Admitting Provider This is a 54yo M with no known past medical history who presents with abdominal pain that woke him up yesterday morning. Describes pain as centrally located with constant aching. Pain is nonradiating. Associated with some nausea but no vomiting or diarrhea. Has had a decreased appetite since then, eating a small amount of a bagel and pizza. Decreased p.o. intake of fluids. Last bowel movement was Friday and patient took MiraLAX yesterday. Is a non-smoker. Drinks alcohol socially but has not had any recently. Still has gallbladder. Denies any previous episodes of pancreatitis. No fever, chills, li ghtheadedness, visual changes, chest pain, shortness of breath, dysuria or diarrhea. No jaundice or unintentional weight loss. In ED, patient is afebrile and hemodynamically stable. Leukocytosis of 17.47. Lipase elevated at 3702. CT abdomen pelvis with IV contrast showing findings consistent with acute pancreatitis as well as a small volume of abdominopelvic ascites. There is a 1.6 cm low-attenuation focus identified in the pancreatic tail. 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 Admission Exam Per Admitting Provider Physical Exam: General Appearance: WD/WN, vitals as above, NAD, sitting up in bed, pleasant, conversing easily Head: normocephalic, atraumatic Eyes: normal inspection, PERRL, conjunctivae normal, anicteric sclerae ENT: external ear and nose normal, oropharynx normal Neck: normal visual inspection, trachea midline, no thyromegaly Respiratory: normal respiratory effort, lungs clear to auscultation, no wheeze, rales, rhonchi. No accessory muscle use Cardiovascular: regular rate, rhythm, no murmur appreciated, normal peripheral pulses, no BLE edema. Vessels: no JVD Chest: normal inspection of chest Abdomen/GI: normal bowel sounds, soft, diffusely TTP but no guarding, no hepatosplenomegaly Extremities/Musculoskeletal: no cyanosis or clubbing, extremities motor strength 5/5 Neurologic: PERRL, EOMI, accommodation nl, no face palsy, no dysarthria, CN's II-XI intact bilaterally and moves all extremities Psychiatric: A+Ox3, euthymic affect Skin: no rashes, normal color, warm/dry Principal Diagnosis Acute pancreatitis, possible IPMN(1.6 cm low-attenuation focus identified in the pancreatic tail) Discharge Exam Constitutional well developed and well nourished; no acute distress and not ill appearing Eyes PERRL, conjunctivae normal, anicteric sclerae ENMT external ear and nose normal, oropharynx normal Neck trachea midline, no thyromegaly Respiratory normal respiratory effort and + respiratory distress Auscultation: lungs clear to auscultation bilaterally Cardiovascular Rate/Rhythm: regular rate and regular rhythm Heart Sounds: no murmur Palpation: normal PMI Gastrointestinal (Abdomen) Inspection/Auscultation: abdomen normal to inspection and normal bowel sounds; abdomen not distended Percussion/Palpation: + abdomen tender (Minimally in the epigastrium); no guarding Neurologic moves all extremities; no focal motor deficits Lymphatic no cervical or axillary lymphadenopathy Discharge Data Allergies Allergy/AdvReac Type Severity Reaction Status Date / Time hornet venom AdvReac Severe Anaphylaxis Unverified 04/25/20 13:51 Consultations 04/25/20 14:07 ED Decision to Admit Stat 04/25/20 15:40 Consult Gastroenterology Routine Ordered Studies 04/25/20 11:51 CT abd pelvis IV con only Stat 04/25/20 15:40 MR MRCP Routine Hospital Course (1) Acute pancreatitis: This is a 54yo M with no known past medical history who presents with abdominal pain that woke him up yesterday morning found to have acute pancreatitis. -Afebrile and hemodynamically stable. Leukocytosis of 17.47. Lipase elevated at 3702. LFTs wnl -Non-smoker, rarely drinks etoh, still has GB -CT abdomen pelvis with IV contrast showing findings consistent with acute pancreatitis as well as a small volume of abdominopelvic ascites -Was on n.p.o. and receiving clears following that -Lipid profile has been unremarkable -Lipase level has normalized as of this morning -Appreciate GI input and recommendation -Tolerating regular diet -Has been ambulating without any difficulties -He will be discharged home this afternoon (2) Abnormal CT of the abdomen: CTAP also with a 1.6 cm low-attenuation focus identified in the pancreatic tail. 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 Discussed with GI, who will coordinate EUS as outpatient as needed -GI input and recommendation -We will have outpatient EUS as an outpatient DVT Ppx: SQ lovenox Code status: FULL PCP: Dr. Darden Dispo: Admitted to med/surg. Plan to return home once medically stable. Total Time Total Time Spent Total Time Spent (In Minutes): 35 minutes Total Time Includes: Examination of the Patient, Discharge Planning, Medication Reconciliation and Communication With Other Providers Discharge Plan Discharge Items Patient Disposition: Home - Self-Care Reason For Visit: ACUTE PANCREATITIS Discharge Diagnosis: Acute pancreatitis, possible IPMN(1.6 cm low-attenuation focus identified in the pancreatic tail) Activity: Resume your previous activity Non-emergency contact: Primary Care Provider Call non-emergency contact if: you have any medication questions and your symptoms worsen Follow-up/Referrals: Lazaro Darden DO [Primary Care Provider] - 05/02/20 11:20 am ([facility] gastroenterology service will give me a call for outpatient EUS study) Diet: Regular and Low Fat Addtl Attending Provider Instructions: Try to avoid fresh fruits and vegetables as long as you have diarrhea. Pending Studies at Discharge: No Stand-Alone Forms: My [employer], Smoking Cessation Medications and DC Order Prescriptions: Continued acetaminophen [Tylenol Extra Strength] 500 mg Tablet 500 mg PO Q6H PRN (Reason: Pain) RF: 0 Discharge Orders: Discharge Order (Routine); Ordered 04/28/20 Ordered By: Pat Florez/Other Patient Handouts: Understanding Pancreatitis Admission Data Admit Date/Time: 04/25/20 14:18 Attending Provider: Pat Woodard Admit Provider: Angel Mcmahon Primary Care Provider: Lazaro Darden Other Providers: Angel Mcmahon ; Jimmie Piña ; Octavio Stratton Other Interventions: Discharge Summary Assessment (RN) Last Done: 04/28/20 14:46
== END 2020-04-28 15:15 | disposition home or self-care (01) | DRG 439 ==
LOC: ED 11:00 → SUATTDRO 14:18 → 2N 14:18 → 3W 04-26 22:22

== ENCOUNTER 2021-08-27 22:10 | Inpatient (IN) ==
[2021-08-27 23:00] LABS: Basophils # (auto) 0.02 K/uL (0-0.2); Basophils % (auto) 0.1 %; Eosinophils # (auto) 0.07 K/uL (0-0.5); Eosinophils % (auto) 0.5 %; Hemoglobin 17.3 g/dL (14.0-18.0); Immature Granulocytes # (auto) 0.05 K/uL (0.00-0.02); Immature Granulocytes % (auto) 0.3 %; Lymphocytes # (auto) 1.75 K/uL (1.2-3.4); Mean Corpuscular Hgb Conc 34.6 g/dL (32-36); Mean Corpuscular Volume 89.6 fL (80-100); Mean Platelet Volume 10.4 fL (7.4-10.4); Monocytes # (auto) 1.01 K/uL (0.11-0.59); Monocytes % (auto) 6.9 %; Neutrophils # (auto) 11.68 K/uL (1.4-6.5); Neutrophils % (auto) 80.2 %; Platelet Count 294 K/uL (130-400); RDW Coefficient of Variation 12.7 % (11.5-14.5); RDW Standard Deviation 41.6 fL (36.4-46.3); Red Blood Count 5.58 M/uL (4.7-6.1); White Blood Count 14.58 K/uL (4.8-10.8)
[2021-08-27 23:22] LABS: BUN Creatinine Ratio 13.8 (10-20); Calcium 10.1 mg/dl (8.5-10.1); Creatinine Clr Calc Pharmacy 62.8 ml/min; Est GFR (African American) 59.3 ml/min; Est GFR (Non-African American) 51.2 ml/min; Potassium 4.4 mmol/L (3.5-5.1)
[2021-08-27 23:25] LABS: Albumin Globulin Ratio 1.3 (0.9-2); Albumin Level 4.6 gm/dl (3.4-5.0); Bilirubin,Total 0.4 mg/dl (0.2-1.0); Globulin 3.5 gm/dl (2.5-4.0); Total Protein 8.1 gm/dl (6.0-8.3)
[2021-08-27] MEDS ORDERED: MoRPHine SULFATE 4 MG/ML 1 ML CARP\\VIAL IV STA (23:39)
[2021-08-27] MEDS ORDERED: ONDANSETRON INJ 2 MG/ML 2 ML VIAL IV STA (23:39)
[2021-08-27] MEDS ORDERED: SODIUM CHLORIDE 0.9% 1000ML 1,000 ML IV ONE (23:39)
--- NOTE | 2021-08-27 23:44 | Emergency Department Note ---
History of Present Illness General Chief complaint: Abdominal Pain Stated complaint: ABDOM PAIN Time Seen by Provider: 08/27/21 23:33 Source: patient History of Present Illness Provider complaint: Abdominal pain Onset (ago): hour(s) Location: abdomen, left and right Radiation: back Pain Consistency: + constant Maximum Pain Intensity: 9 Quality: + aching Relieved By: + none Associated symptoms: + nausea/vomiting; no chest pain, no cough, no fever/chills or no shortness of breath This is a 56-year-old male with a history of pancreatitis presenting with abdominal pain starting at approximately 7 PM tonight that feels similar to his prior episode of pancreatitis. He describes it as an ache in the middle of his abdomen. He denies any modifying factors. It is associated with severe nausea but no vomiting. He has had no fever, cough or cold symptoms, chest pain, s hortness of breath, diarrhea or urinary symptoms. He does not know the cause of his pancreatitis. He only drinks alcohol occasionally and has not been drinking recently. He was told that it was possibly his gallbladder last time. Home Medications Medication Instructions Recorded Confirmed Type bismuth subsalicylate 262 mg 2 tab PO QID PRN 08/28/21 08/28/21 History tablet (Pepto-Bismol) ibuprofen 200 mg tablet 800 mg PO TID PRN 08/28/21 08/28/21 History Allergies Allergy/AdvReac Type Severity Reaction Status Date / Time hornet venom AdvReac Severe Anaphylaxis Unverified 08/28/21 01:13 Past Med/Surg History Medical History Acute pancreatitis Diverticulosis Surgical History History of colonoscopy Family History Other Family history unknown Social History Smoking Status: Never smoker Hx Alcohol Use: Yes Alcohol type: beer Alcohol Intake Frequency: Monthly or Less Hx Substance Use: No Preferred Language: Estonian Communication Ability: Effective Warehouse Coordinator Required: No Beliefs That Will Affect Care: None marital status: Current Living Situation: Spouse current occupational status: unemployed Feels Safe at Home: Yes Assistive Devices: Glasses Review of Systems See HPI for pertinent positives & negatives. and A total of 10 systems reviewed and were otherwise negative Physical Exam Vital Signs Vital Signs - 24 hr 08/27/21 22:22 08/27/21 23:55 08/27/21 23:56 Temperature 36.4 C L 36.6 C Temperature Source Oral Oral Pulse Rate 78 84 Pulse Rate [Right Finger] 84 Pulse Rate from SpO2 Sensor 84 Respiratory Rate 18 16 18 Respiratory Effort / Characteristics Non-Labored Spontaneous Non-Labored Spontaneous Respiratory Depth Normal Normal Respiratory Pattern Regular Blood Pressure 169/106 H Blood Pressure [Right Arm] 151/99 H Blood Pressure Mean 127 Blood Pressure Mean [Right Arm] 116 Blood Pressure Position Sitting Pulse Oximetry 98 98 98 Oxygen Delivery Method Room Air Room Air Sepsis Recent Fever Within 48 Hours No Sepsis New/Unexplained Change in Mental Status N/A Sepsis Action Taken by Nursing No Action Required 08/28/21 00:00 08/28/21 00:30 Temperature Temperature Source Pulse Rate 76 75 Pulse Rate [Right Finger] Pulse Rate from SpO2 Sensor 79 77 Respiratory Rate 16 20 Respiratory Effort / Characteristics Respiratory Depth Respiratory Pattern Blood Pressure 155/99 H 168/115 H Blood Pressure [Right Arm] Blood Pressure Mean 117 132 Blood Pressure Mean [Right Arm] Blood Pressure Position Pulse Oximetry 97 99 Oxygen Delivery Method Sepsis Recent Fever Within 48 Hours Sepsis New/Unexplained Change in Mental Status Sepsis Action Taken by Nursing Constitutional: Vital signs reviewed. Eyes: Pupils are equal round reactive to light. Conjunctiva are noninjected. ENT: Pharynx is clear without erythema or exudate. Mucous membranes are moist. Neck supple without meningeal signs. Respiratory: Clear to auscultation bilaterally. Breath sounds are equal bilaterally. Cardiovascular: Regular rate and rhythm. No rubs or gallops. GI: Soft, distended with tenderness in the left upper quadrant. No guarding. Bowel sounds are present. Musculoskeletal: No peripheral edema. No lower extremity tenderness. No CVA tenderness. Integumentary: No cyanosis. or jaundice. Neurological: The patient is awake and alert. No focal deficits. Psychiatric: Anxious. Course Administered Medications Discontinued Medications Hydromorphone HCl (Hydromorphone Inj 0.5 Mg/0.5 Ml Syr) 0.5 mg IV NOW STA Stop: 08/28/21 00:24 Last Admin: 08/28/21 00:28 Dose: 0.5 mg Documented by: [id number] Sodium Chloride (Nss 1000ml) 1,000 mls @ 999 mls/hr IV .Q1H1M ONE Stop: 08/28/21 00:39 Last Admin: 08/27/21 23:47 Dose: 999 mls/hr Documented by: [id number] Morphine Sulfate (Morphine Sulfate 4 Mg/Ml 1 Ml Carp\Vial) 4 mg IV NOW STA Stop: 08/27/21 23:40 Last Admin: 08/27/21 23:46 Dose: 4 mg Documented by: [id number] Ondansetron HCl (Ondansetron Inj 2 Mg/Ml 2 Ml Vial) 4 mg IV NOW STA Stop: 08/27/21 23:40 Last Admin: 08/27/21 23:47 Dose: 4 mg Documented by: [id number] Medical Decision Making Differential Diagnosis Acute pancreatitis, peptic ulcer disease, choledocholithiasis, pancreatic cancer, ascites Medical Records Attestation: I reviewed the patient's medical records. I did perform a limited focused review of portions of the patient's old chart on the electronic medical record. The patient was admitted in 2019 for pancreatitis. He had an MRCP and was seen by GI. MRCP demonstrated a cystic structure in the pancreatic tail concerning for IPMN. Home Medications Current Medication List: was personally reviewed by me Laboratory Data Attestation: I reviewed the patient's lab results. Result diagrams: 08/27/21 22:48 08/27/21 22:48 Lab Results 08/27/21 08/27/21 08/27/21 Range/Units 22:48 22:48 22:48 WBC 14.58 H (4.8-10.8) K/uL RBC 5.58 (4.7-6.1) M/uL Hgb 17.3 (14.0-18.0) g/dL Hct 50.0 (42-52) % MCV 89.6 (80-100) fL MCH 31.0 (25-34) pg MCHC 34.6 (32-36) g/dL RDW Std Deviation 41.6 (36.4-46.3) fL RDW Coeff of Marlee 12.7 (11.5-14.5) % Plt Count 294 (130-400) K/uL MPV 10.4 (7.4-10.4) fL Immature Gran % (Auto) 0.3 % Neut % (Auto) 80.2 % Lymph % (Auto) 12.0 % [place] % (Auto) 6.9 % Eos % (Auto) 0.5 % Baso % (Auto) 0.1 % Neut # (Auto) 11.68 H (1.4-6.5) K/uL Lymph # (Auto) 1.75 (1.2-3.4) K/uL [place] # (Auto) 1.01 H (0.11-0.59) K/uL Eos # (Auto) 0.07 (0-0.5) K/uL Baso # (Auto) 0.02 (0-0.2) K/uL Immature Gran # (Auto) 0.05 H (0.00-0.02) K/uL Sodium 136 (136-145) mmol/L Potassium 4.4 (3.5-5.1) mmol/L Chloride 98 (98-107) mmol/L Carbon Dioxide 28 (21-32) mmol/L Anion Gap 10 (3-11) BUN 21 (6-23) mg/dl Creatinine 1.52 H (0.6-1.4) mg/dl Est Cr Clr Drug Dosing 62.8 ml/min Est GFR ( Amer) 59.3 ml/min Est GFR (Non-Af Amer) 51.2 ml/min BUN/Creatinine Ratio 13.8 (10-20) Glucose 224 H (70-99(Fasting)) mg/dl Calcium 10.1 (8.5-10.1) mg/dl Magnesium 2.1 (1.7-2.4) mg/dl Total Bilirubin 0.4 (0.2-1.0) mg/dl AST 29 (13-39) U/L ALT 44 (7-52) U/L Alkaline Phosphatase 84 (34-104) U/L Total Protein 8.1 (6.0-8.3) gm/dl Albumin 4.6 (3.4-5.0) gm/dl Globulin 3.5 (2.5-4.0) gm/dl Albumin/Globulin Ratio 1.3 (0.9-2) Lipase 6839 H (11-82) U/L Urine Color Urine Appearance (Clear) Urine pH (4.5-7.5) Ur Specific [place] (1.000-1.030) Urine Protein (Negative) Urine Glucose (UA) (Negative) Urine Ketones (Negative) Urine Blood (Negative) Urine Nitrite (Negative) Urine Bilirubin (Negative) Urine Urobilinogen (Negative) Ur Leukocyte Esterase (Negative) Urine WBC (Auto) (0-5) /hpf Urine RBC (Auto) (0-4) /hpf U Hyaline Cast (Auto) (0-5) /lpf U Epithel Cells (Auto) (0-5) /lpf Urine Bacteria (Auto) (Negative) SARS-CoV-2, RNA, NAAT (NEGATIVE) 08/27/21 08/27/21 Range/Units 23:45 23:45 WBC (4.8-10.8) K/uL RBC (4.7-6.1) M/uL Hgb (14.0-18.0) g/dL Hct (42-52) % MCV (80-100) fL MCH (25-34) pg MCHC (32-36) g/dL RDW Std Deviation (36.4-46.3) fL RDW Coeff of [place]lee (11.5-14.5) % Plt Count (130-400) K/uL MPV (7.4-10.4) fL Immature Gran % (Auto) % Neut % (Auto) % Lymph % (Auto) % [place] % (Auto) % Eos % (Auto) % Baso % (Auto) % Neut # (Auto) (1.4-6.5) K/uL Lymph # (Auto) (1.2-3.4) K/uL [place] # (Auto) (0.11-0.59) K/uL Eos # (Auto) (0-0.5) K/uL Baso # (Auto) (0-0.2) K/uL Immature Gran # (Auto) (0.00-0.02) K/uL Sodium (136-145) mmol/L Potassium (3.5-5.1) mmol/L Chloride (98-107) mmol/L Carbon Dioxide (21-32) mmol/L Anion Gap (3-11) BUN (6-23) mg/dl Creatinine (0.6-1.4) mg/dl Est Cr Clr Drug Dosing ml/min Est GFR ( Amer) ml/min Est GFR (Non-Af Amer) ml/min BUN/Creatinine Ratio (10-20) Glucose (70-99(Fasting)) mg/dl Calcium (8.5-10.1) mg/dl Magnesium (1.7-2.4) mg/dl Total Bilirubin (0.2-1.0) mg/dl AST (13-39) U/L ALT (7-52) U/L Alkaline Phosphatase (34-104) U/L Total Protein (6.0-8.3) gm/dl Albumin (3.4-5.0) gm/dl Globulin (2.5-4.0) gm/dl Albumin/Globulin Ratio (0.9-2) Lipase (11-82) U/L Urine Color Yellow Urine Appearance Clear (Clear) Urine pH 5.0 (4.5-7.5) Ur Specific [place] 1.022 (1.000-1.030) Urine Protein Trace H (Negative) Urine Glucose (UA) 3+ H (Negative) Urine Ketones Trace H (Negative) Urine Blood Trace H (Negative) Urine Nitrite Negative (Negative) Urine Bilirubin Negative (Negative) Urine Urobilinogen Negative (Negative) Ur Leukocyte Esterase Negative (Negative) Urine WBC (Auto) 1-5 (0-5) /hpf Urine RBC (Auto) 0-4 (0-4) /hpf U Hyaline Cast (Auto) 1-5 (0-5) /lpf U Epithel Cells (Auto) 5-10 H (0-5) /lpf Urine Bacteria (Auto) Negative (Negative) SARS-CoV-2, RNA, NAAT NEGATIVE (NEGATIVE) [facility] Narrative I did evaluate the patient as noted above. He is presenting with abdominal pain consistent with his prior episode of pancreatitis. IV access was established. I did place an order for continuous cardiac monitoring. The monitor showed normal sinus rhythm at a rate of 70 bpm. I did treat him with IV morphine and Zofran. He was given a liter normal saline IV. I did order a urine analysis. He has trace ketones and 3+ glucose. I did order and review the patient's blood work as noted in the electronic medical record. His white count is elevated at 14.5. He is not anemic. His electrolytes are unremarkable. Creatinine is elevated at 1.52. Glucose is 224. LFTs are unremarkable. Lipase is 6839. I did discuss the test results with the patient. I did order a screening COVID test which was negative. He had continued pain and was given Dilaudid 0.5 mg IV. I did review his MRCP results with him from his prior visit. He will need to be seen by GI again. He will be hospitalized for further care and evaluation. I did discuss the case with the hospitalist and manager rn case. Impression & Plan Acute pancreatitis, Acute hyperglycemia Discharge Plan Visit Data Chief Complaint: Abdominal Pain Stated Complaint: ABDOM PAIN ED Provider: Thomas Carver Discharge Problem: Acute pancreatitis, Acute hyperglycemia Patient Disposition: Being Evaluated by Hospitalist Discharge Instructions Interventions: ED Discharge Assessment Last Done: 08/28/21 00:21 Forms Stand Alone Forms: My [facility] Organizer Prescriptions Prescriptions: No Action ibuprofen 200 mg Tablet 800 mg PO TID PRN (Reason: Pain) RF: 0 Pepto-Bismol 262 mg Tablet 2 tab PO QID PRN (Reason: gi-upset) RF: 0 Referrals Referrals: Lazaro Darden DO [Primary Care Provider] -
[2021-08-28] MEDS ORDERED: HYDROmorphone INJ 0.5 MG/0.5 ML SYR IV STA (00:23)
[2021-08-28 00:49] LABS: Appearance Urine Clear (Clear); Bacteria Urine Automated Negative (Negative); Bilirubin Urine Negative (Negative); Blood Urine Trace (Negative); Color Urine Yellow; Glucose Urine UA 3+ (Negative); Ketones Urine Trace (Negative); Leukocyte Esterase Urine Negative (Negative); Nitrite Urine Negative (Negative); Protein Urine Trace (Negative); RBC Urine Automated 0-4 /hpf (0-4); Specific Gravity Urine 1.022 (1.000-1.030); Urobilinogen Urine Negative (Negative)
[2021-08-28] MEDS ORDERED: amLODIPine BESYLATE 5 MG TAB PO ONE (01:43)
[2021-08-28] MEDS ORDERED: LACTATED RINGER'S 1,000 ML IV ONE ×2 (01:44→22:30)
[2021-08-28] MEDS ORDERED: oxyCODONE HCL IR 5 MG TAB (IMMEDIATE RELEASE) PO PRN (01:59)
[2021-08-28] MEDS ORDERED: HYDROmorphone INJ 0.5 MG/0.5 ML SYR IV PRN (01:59)
[2021-08-28] MEDS ORDERED: ACETAMINOPHEN 325 MG TAB PO PRN (01:59)
--- NOTE | 2021-08-28 02:21 | History & Physical Report ---
Date of Service August 28, 2021 Assessment & Plan (1) Gallstone pancreatitis: Plan: Situational hypertension secondary to above Possible chronic BP elevation given LAE on prior EKG ARF Hyperglycemia rule out DM Medical telemetry given BP elevation Initiate Amlodipine Analgesia Bowel rest Baseline UA, monitor creatinine response to IVF GI consult Re: Recurrent pancreatitis Surgery consult Re: Gallstone pancreatitis Check hemoglobin A1c DVT prophylaxis. SCDs Re: Possible cholecystectomy Recommend pharmacologic anticoagulation Heparin 5000 units subcutaneous every 8 hours once bleeding risk is deemed to be minimal and negligible pending General Surgery evaluation. Full code Text document was generated using [employer] voice recognition software. It may contain grammatical or spelling errors. Kindly contact undersigned for clarification of any documentation item in question. History of Present Illness Chief Complaint: Abdominal pain Primary Care Provider: Lazaro Darden DO History obtained from patient and records. Medical history significant for pancreatitis. Last confinement April [address] abdomen pelvis at that time showed low-attenuation focus identified in the pancreatic tail, possible IPMN versus small developing pseudocyst. Patient underwent outpatient EUS June 2020. No significant pathology in the ampulla or CBD. Hyperechoic material consistent with sludge in the gallbladder. Possible pancreatic pseudocyst. MRI recom mended after 2 years. Patient referred to general surgery to discuss possible cholecystectomy as per documentation. Patient seen by [facility] General Surgery outpatient August,. Elective laparoscopic cholecystectomy recommended. Patient noted achy upper abdominal pain reminiscent of pancreatitis attack with nausea symptoms after a chicken dinner last night. No emesis. No fever, no chills. No recent EtOH intake. Admits to fatty food intake over the last few weeks. Medical History as above Surgical History : None Family History : Hypertension Personal/Social history : Non-smoker, occasional EtOH intake, [employer] employee Allergies Allergy/AdvReac Type Severity Reaction Status Date / Time hornet venom AdvReac Severe Anaphylaxis Unverified 08/28/21 01:13 Home Medications Medication Instructions Recorded Confirmed Type bismuth subsalicylate 262 mg 2 tab PO QID PRN 08/28/21 08/28/21 History tablet (Pepto-Bismol) ibuprofen 200 mg tablet 800 mg PO TID PRN 08/28/21 08/28/21 History Past Med/Surg History Medical History Acute pancreatitis Diverticulosis Surgical History History of colonoscopy Family History Other Family history unknown Social History Smoking Status: Never smoker Hx Alcohol Use: Yes Alcohol type: beer Alcohol Intake Frequency: Monthly or Less Hx Substance Use: No Preferred Language: Sinhala Communication Ability: Effective 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 Beliefs That Will Affect Care: None marital status: Current Living Situation: Spouse current occupational status: unemployed Other Information That Helps Us Care for You: No Feels Safe at Home: Yes Safety Concerns: Feels Safe At This Time Assistive Devices: Glasses Review of Systems Review of Systems: As per HPI, all 10 systems reviewed, all other ROS negative Physical Exam Physical Exam: GENERAL: Slightly uncomfortable, pleasant, obese, no respiratory distress SKIN: Normal color, warm HEENT: [place] palpebral conjunctivae, no ptosis, dry buccal mucosa NECK : Supple, no tenderness CHEST : CTA, no tenderness HEART : RRR, no obvious murmurs ABDOMEN: Some distention, epigastric tenderness EXTREMITIES : No LE swelling/tenderness, no other conspicuous deformities noted NEUROLOGIC : Coherent, no facial asymmetry, no other gross focality Results & Data Results & Data ([facility]) Vital Signs (Past 12 Hours) Vital Signs Temp Pulse Pulse Resp BP BP Pulse Ox 08/28/21 00:30 75 20 168/115 H 99 08/28/21 00:00 76 16 155/99 H 97 08/27/21 23:56 84 18 98 08/27/21 23:55 36.6 C 84 16 151/99 H 98 08/27/21 22:22 36.4 C L 78 18 169/106 H 98 Laboratory Results Laboratory Results WBC 14.58 K/uL (4.8-10.8) H 08/27/21 22:48 RBC 5.58 M/uL (4.7-6.1) 08/27/21 22:48 Hgb 17.3 g/dL (14.0-18.0) 08/27/21 22:48 Hct 50.0 % (42-52) 08/27/21 22:48 MCV 89.6 fL (80-100) 08/27/21 22:48 MCH 31.0 pg (25-34) 08/27/21 22:48 MCHC 34.6 g/dL (32-36) 08/27/21 22:48 RDW Std Deviation 41.6 fL (36.4-46.3) 08/27/21 22:48 RDW Coeff of Marlee 12.7 % (11.5-14.5) 08/27/21 22:48 Plt Count 294 K/uL (130-400) 08/27/21 22:48 MPV 10.4 fL (7.4-10.4) 08/27/21 22:48 Immature Gran % (Auto) 0.3 % 08/27/21 22:48 Neut % (Auto) 80.2 % 08/27/21 22:48 Lymph % (Auto) 12.0 % 08/27/21 22:48 [place] % (Auto) 6.9 % 08/27/21 22:48 Eos % (Auto) 0.5 % 08/27/21 22:48 Baso % (Auto) 0.1 % 08/27/21 22:48 Neut # (Auto) 11.68 K/uL (1.4-6.5) H 08/27/21 22:48 Lymph # (Auto) 1.75 K/uL (1.2-3.4) 08/27/21 22:48 [place] # (Auto) 1.01 K/uL (0.11-0.59) H 08/27/21 22:48 Eos # (Auto) 0.07 K/uL (0-0.5) 08/27/21 22:48 Baso # (Auto) 0.02 K/uL (0-0.2) 08/27/21 22:48 Immature Gran # (Auto) 0.05 K/uL (0.00-0.02) H 08/27/21 22:48 Sodium 136 mmol/L (136-145) 08/27/21 22:48 Potassium 4.4 mmol/L (3.5-5.1) 08/27/21 22:48 Chloride 98 mmol/L (98-107) 08/27/21 22:48 Carbon Dioxide 28 mmol/L (21-32) 08/27/21 22:48 Anion Gap 10 (3-11) 08/27/21 22:48 BUN 21 mg/dl (6-23) 08/27/21 22:48 Creatinine 1.52 mg/dl (0.6-1.4) H 08/27/21 22:48 Est Cr Clr Drug Dosing 62.8 ml/min 08/27/21 22:48 Est GFR ( Amer) 59.3 ml/min 08/27/21 22:48 Est GFR (Non-Af Amer) 51.2 ml/min 08/27/21 22:48 BUN/Creatinine Ratio 13.8 (10-20) 08/27/21 22:48 Glucose 224 mg/dl (70-99(Fasting)) H 08/27/21 22:48 Calcium 10.1 mg/dl (8.5-10.1) 08/27/21 22:48 Magnesium 2.1 mg/dl (1.7-2.4) 08/27/21 22:48 Total Bilirubin 0.4 mg/dl (0.2-1.0) 08/27/21 22:48 AST 29 U/L (13-39) 08/27/21 22:48 ALT 44 U/L (7-52) 08/27/21 22:48 Alkaline Phosphatase 84 U/L (34-104) 08/27/21 22:48 Total Protein 8.1 gm/dl (6.0-8.3) 08/27/21 22:48 Albumin 4.6 gm/dl (3.4-5.0) 08/27/21 22:48 Globulin 3.5 gm/dl (2.5-4.0) 08/27/21 22:48 Albumin/Globulin Ratio 1.3 (0.9-2) 08/27/21 22:48 Lipase 6839 U/L (11-82) H 08/27/21 22:48 Urine Color Yellow 08/27/21 23:45 Urine Appearance Clear (Clear) 08/27/21 23:45 Urine pH 5.0 (4.5-7.5) 08/27/21 23:45 Ur Specific [place] 1.022 (1.000-1.030) 08/27/21 23:45 Urine Protein Trace (Negative) H 08/27/21 23:45 Urine Glucose (UA) 3+ (Negative) H 08/27/21 23:45 Urine Ketones Trace (Negative) H 08/27/21 23:45 Urine Blood Trace (Negative) H 08/27/21 23:45 Urine Nitrite Negative (Negative) 08/27/21 23:45 Urine Bilirubin Negative (Negative) 08/27/21 23:45 Urine Urobilinogen Negative (Negative) 08/27/21 23:45 Ur Leukocyte Esterase Negative (Negative) 08/27/21 23:45 Urine WBC (Auto) 1-5 /hpf (0-5) 08/27/21 23:45 Urine RBC (Auto) 0-4 /hpf (0-4) 08/27/21 23:45 U Hyaline Cast (Auto) 1-5 /lpf (0-5) 08/27/21 23:45 U Epithel Cells (Auto) 5-10 /lpf (0-5) H 08/27/21 23:45 Urine Bacteria (Auto) Negative (Negative) 08/27/21 23:45 SARS-CoV-2, RNA, NAAT NEGATIVE (NEGATIVE) 08/27/21 23:45 Diagnostic Findings Gallbladder ultrasound initial read: Fluid collection noted anterior to the pancreas. Please note that the pancreas is also diffusely echogenic. Findings mayrelate to acute pancreatitis. Recommend cross-sectional imaging. Hepatic steatosis. Cholelithiasiswith dependent calculus at the gallbladder neckwith sludge noted superiorly. No evidence of common ductal dilatation, wall thickening, or pericholecystic fluid. Chest x-ray as per my interpretation no congestion EKG as per my interpretation : Rate 75, NSR, normal axis, T wave flattening inferior leads
[2021-08-28] MEDS ORDERED: HYDROmorphone INJ 1 MG/ML SYRINGE IV STA (05:11)
[2021-08-28] MEDS ORDERED: LACTATED RINGER'S 1,000 ML IV SCH (05:13)
[2021-08-28] MEDS ORDERED: PROMETHAZINE HCL 12.5 MG in SODIUM CHLORIDE 0.9% 50 ML IV PRN (05:13)
--- NOTE | 2021-08-28 05:59 | Surgery Consultation ---
Date of Consultation August 28, 2021 Assessment & Plan (1) Gallstone pancreatitis: Patient has been admitted by the hospitalist service. We recommend proceeding as follows: Hydration with IV fluids N.p.o. status Provide analgesics Provide antiemetics Follow serial labs The medical service has requested a GI consultation we will await further input regarding the need for further imaging or diagnostic test such as an ERCP Patient has a mildly distended abdomen. He could potentially be developing an ileus. If further nausea vomiting ensue and concern remains for ileus and NG tube may be beneficial. As this is the patient's second known occurrence of pancreatitis potentially related to gallstones he may benefit from cholecystectomy. This can be considered once his acute pancreatitis has improved We will continue to follow along while hospitalized Supervising Physician Co-Signing Physician Notes I personally saw and examined the patient with Andrew Paiz PA-C and agree with the assessment and plan. 56-year-old male with a gallstone pancreatitis Ultrasound images and results reviewed, consistent with gallstones and questionable pancreatitis His lipase is elevated as well as has a leukocytosis and slight acute kidney injury Would recommend a CT abdomen pelvis with IV contrast to evaluate severity of pancreatitis Agree with GI consult, will await recommendations No need for antibiotics at this point, continue aggressive IV resuscitation to maintain adequate urine output We will tentatively plan on laparoscopic cholecystectomy, possible open on 08/30 pending his clinical course We will follow History of Present Illness Reason for Consultation: Gallstone pancreatitis Attending Physician: Deanne Roche, History of Present Illness This is a 56-year-old male who presented to [facility] emergency department secondary abdominal pain that began yesterday. He notes that the pain started at approximately 7:00 PM yesterday and is described mostly in the epigastric region. He says he has some nausea and vomiting. He denies any fevers, shakes, chills. He does not note any modifying factors other than that the pain seems to be worse after eating and it seems to be improved after receiving pain medicines emergency department. The patient denies any prior abdominal surgeries. It is noteworthy to mention that the patient had a previous history of pancreatitis. He notes that this occurred in April 2020. Patient reports that he was considering having an elective cholecystectomy but has not yet undergone this. During this episode of pancreatitis the patient did have a CT scan of the abdomen and pelvis that showed findings consistent with acute pancreatitis. There is also a 1.6 cm attenuation in the pancreatic tail. This felt to be potentially related to a developing pseudocyst. Patient also underwent an MRCP at this time that showed again findings with acute pancreatitis and 1.6 cm cystic structure in the pancreatic tail. In the emergency department the patient had labs and imaging which I independently reviewed. Chest x-ray showed no evidence of pneumonia or pleural effusion. A biliary ultrasound showed the pancreatic diffuse edema of the pancreas consistent with acute pancreatitis. He was also noted to have gallstones with a gallstone at the gallbladder neck along with sludge. There is no evidence of gallbladder wall thickening or pericholecystic fluid. Labs including CBC were white blood cell count was elevated at 14.5. Hemoglobin, hematocrit, and platelet count were all within normal range. Chemistry profile showed sodium, potassium, and BUN were all normal. His creatinine had a slight elevation at 1.5 there is no elevation of his bilirubin, transaminases, or alkaline phosphatase. Lipase was elevated at 6839. Urinalysis was not indicative of infection and a COVID test was noted to be negative. At the time of my interview the patient was resting comfortably in bed. He was in no distress. Allergies Allergy/AdvReac Type Severity Reaction Status Date / Time hornet venom AdvReac Severe Anaphylaxis Unverified 08/28/21 01:13 Home Medications Medication Instructions Recorded Confirmed Type bismuth subsalicylate 262 mg 2 tab PO QID PRN 08/28/21 08/28/21 History tablet (Pepto-Bismol) ibuprofen 200 mg tablet 800 mg PO TID PRN 08/28/21 08/28/21 History Patient History Medical History Acute pancreatitis Diverticulosis Surgical History History of colonoscopy Family History Other Family history unknown Social History Smoking Status: Never smoker Hx Alcohol Use: Yes Alcohol type: beer Alcohol Intake Frequency: Monthly or Less Hx Substance Use: No Preferred Language: Greenlandic Communication Ability: Effective Insurance Claims Processor Required: No Beliefs That Will Affect Care: None marital status: Current Living Situation: Spouse current occupational status: unemployed Other Information That Helps Us Care for You: No Feels Safe at Home: Yes Safety Concerns: Feels Safe At This Time Assistive Devices: Glasses Review of Systems Constitutional: no fever and no chills Eyes: no diplopia Ear, Nose, Mouth, Throat: no ear pain Respiratory: no cough and no dyspnea Cardiovascular: no chest pain Gastrointestinal: + abdominal pain, + nausea and + vomiting Genitourinary: no dysuria Musculoskeletal: no back pain Integumentary: no rash Neurologic: no localized weakness Physical Exam Constitutional: well developed and well nourished; no acute distress Eyes: no conjunctival abnormality ENMT: Ears: no hearing impairment Neck: trachea midline Respiratory: normal respiratory effort; no respiratory distress and no labored breathing Cardiovascular: Rate/Rhythm: regular rate and regular rhythm Gastrointestinal (Abdomen): Abdomen is mildly distended. Bowel sounds are hypoactive. Patient did have pain with palpation in the epigastric area. Musculoskeletal: No calf tenderness Skin: no rashes Neurologic: moves all extremities Psychiatric: Orientation: alert and oriented x 3 Affect: + flat affect Results & Data ([facility]) Vital Signs (Past 12 Hours) Vital Signs Temp Pulse Pulse Resp BP BP Pulse Ox 08/28/21 05:13 36.6 C 67 18 171/109 H 97 08/28/21 04:01 69 16 174/100 H 93 08/28/21 04:00 78 15 96 08/28/21 03:56 73 22 97 08/28/21 03:00 65 158/100 H 96 08/28/21 02:30 70 161/115 H 08/28/21 02:00 18 161/106 H 95 08/28/21 01:30 72 18 154/108 H 95 08/28/21 01:00 69 17 169/113 H 96 08/28/21 00:30 75 20 168/115 H 99 08/28/21 00:00 76 16 155/99 H 97 08/27/21 23:56 84 18 98 08/27/21 23:55 36.6 C 84 16 151/99 H 98 08/27/21 22:22 36.4 C L 78 18 169/106 H 98 PG Care Time/CCT Total # of Minutes Spent Total Time Spent with Patient: Total time spent is greater than 50% in coordination of care (as documented) at patient's floor/unit and/or counseling patient: Coding Level of Care Code 35506 Inpt Consult Level 5 Diagnoses Gallstone pancreatitis K85.10
[2021-08-28] MEDS ORDERED: HEPARIN SOD 5,000 UNIT/0.5 ML VIAL SQ SCH (06:00)
[2021-08-28 06:58] LABS: Estimated Average Glucose 131 mg/dl; Hemoglobin A1C 6.2 % (4.5-5.6)
[2021-08-28] MEDS: HYDROmorphone INJ 0.5 MG/0.5 ML SYR IV PRN ×4 (07:10→19:32)
--- NOTE | 2021-08-28 07:50 | XRay Report ---
XR chest 1V portable CLINICAL HISTORY: Acute renal failure with difficulty breathing. Evaluate for pulmonary edema COMPARISON STUDY: No previous studies for comparison. TECHNIQUE: 1 view of the chest FINDINGS: Single frontal view of the chest demonstrates the cardiomediastinal silhouette to be within normal li mits. The lungs are clear of alveolar opacities. There is no evidence for pleural effusion. There is no evidence for vascular congestion. There is no acute osseous pathology. IMPRESSION: No acute cardiopulmonary disease. ACT 112: Negative or not required by law. Electronically signed by: Dao Black M.D. 08/28/2021 7:49 AM
[2021-08-28] MEDS ORDERED: FLUARIX QUADRIVALENT 0.5 ML SYR IM ONE (08:00)
--- NOTE | 2021-08-28 08:10 | Ultrasound Report ---
US gallbladder LIMITED ABDOMEN CLINICAL HISTORY: Upper abdominal pain. Elevated white blood cell count and lipase. COMPARISON: None. TECHNIQUE: Multiple grayscale and color images of the right upper quadrant of the abdomen. FINDINGS: The study is limited by overlying bowel gas. Pancreas: The head and tail of pancreas are not visualized due to overlying bowel gas. There appears to be a fluid collection anterior to the body the pancreas which could represent a bowel loop. Increa sed echogenicity is present of the body the pancreas. The presence of pancreatic Judah cannot be excl uded by this study. CT of the abdomen with contrast would be the study of choice for further evaluati on. Liver: The liver is heterogeneous in echogenicity characteristic of fatty infiltration and hepatocell ular disease. There is no evidence for a focal mass. There is no intrahepatic biliary duct dilatation . Gallbladder: The gallbladder is distended with calculi seen within the neck of the gallbladder. Post erior acoustic shadowing is present. No definite wall thickening or pericholecystic edema is seen. Th e patient was given pain medication prior to the study and Christina's sign cannot be evaluated. Common Bile Duct: (CBD): It is normal in size measuring 4 mm. Inferior Vena Cava (IVC): The imaged IVC is patent. Right kidney: There is no evidence for hydronephrosis, calculus or gross renal mass. The kidney is n ormal in size. IMPRESSION: 1. Limited examination with findings suspicious for pancreatitis. However, CT of the abdomen with con trast would be the study of choice for further evaluation. 2. Fatty infiltration of liver. 3. Cholelithiasis with no definite ultrasound evidence for acute cholecystitis. However, the patient was medicated and Christina's sign cannot be evaluated. ACT 112: Negative or not required by law. Electronically signed by: Dao Black M.D. 08/28/2021 8:09 AM
--- NOTE | 2021-08-28 09:34 | Gastrointestinal Consultation ---
Date of Consultation August 28, 2021 Assessment & Plan (1) Gallstone pancreatitis: 56 year old male admitted w/ pain, nausea, elevated lipase and ABD US w/ gallstones w/o cholecystitis, biliary dilation or obstruction. He has history of similar presentation in 2019 at which time he was to have OP EUS and CCY but is unsure if EUS was completed and I was unable to access [facility] EMR NPO MRCP IV analgesia IV antiemetics IV LR 200 mL/hr No indication for ERCP given normal LFTs Appreciate general surgery evaluation If MRCP negative, okay to advance to clear liquids Thank you for allowing us to participate in the care of this patient. Please call with any acute changes, questions or concerns. Please see addendum below with additional recommendation from my supervising physician. Supervising Physician Co-Signing Physician Notes I have seen and examined the patient with LACY Benitez whose note reflects our findings and plan. Recurrent gallstone pnacreatitis. Patient need s cholecystectomy. Will order MRCP to be sure duct clear, but LFTs are normal so choledocholithiasis less likely. Agree with IVF hydration, PRN analgesia and anti-emetics. Bowel rest. History of Present Illness Reason for Consultation: abd pain, elevated lipase Requesting Physician: Melchor Attending Physician: Deanne Roche, DO History of Present Illness 56 year old male w/ history of gallstone pancreatitis, presenting with acute onset upper abdominal pain, nausea w/o vomiting. In the ED imaging with gallstones w/o cholecystitis or biliary obstruction and elevated lipase. LFTs normal. He report since last episode in 2019 he was clinically feeling well. Denied any interval symptoms until this week. denies ETOH denies new meds or symptoms ABD US 2021: 1. Limited examination with findings suspicious for pancreatitis. However, CT of the abdomen with contrast would be the study of choice for further evaluation. 2. Fatty infiltration of liver. 3. Cholelithiasis with no definite ultrasound evidence for acute cholecystitis. However, the patient was medicated and Christina's sign cannot be evaluated. Allergies Allergy/AdvReac Type Severity Reaction Status Date / Time hornet venom AdvReac Severe Anaphylaxis Unverified 08/28/21 01:13 Home Medications Medication Instructions Recorded Confirmed Type bismuth subsalicylate 262 mg 2 tab PO QID PRN 08/28/21 08/28/21 History tablet (Pepto-Bismol) ibuprofen 200 mg tablet 800 mg PO TID PRN 08/28/21 08/28/21 History Patient History Medical History Acute pancreatitis Diverticulosis Surgical History History of colonoscopy Family History Other Family history unknown Social History Smoking Status: Never smoker Hx Alcohol Use: Yes Alcohol type: beer Alcohol Intake Frequency: Monthly or Less Hx Substance Use: No Preferred Language: Faroese Communication Ability: Effective Freelance Interpreter/Translator Required: No Beliefs That Will Affect Care: None marital status: Current Living Situation: Spouse current occupational status: unemployed Other Information That Helps Us Care for You: No Feels Safe at Home: Yes Safety Concerns: Feels Safe At This Time Assistive Devices: Glasses Review of Systems Review of Systems: All systems reviewed & are unremarkable except as noted in HPI & below Physical Exam Constitutional: WD/WN, vitals as above Neck: trachea midline, no thyromegaly Respiratory: normal respiratory effort, lungs clear to auscultation Cardiovascular: RRR, no murmur, no edema Gastrointestinal (Abdomen): normal bowel sounds, soft, nontender, no hepatosplenomegaly Skin: no rashes, warm and dry Results & Data ([facility]) Vital Signs (Past 12 Hours) Vital Signs Temp Pulse Pulse Resp BP BP Pulse Ox 08/28/21 07:05 74 19 182/110 H 96 08/28/21 05:13 36.6 C 67 18 171/109 H 97 08/28/21 04:01 69 16 174/100 H 93 08/28/21 04:00 78 15 96 08/28/21 03:56 73 22 97 08/28/21 03:00 65 158/100 H 96 08/28/21 02:30 70 161/115 H 08/28/21 02:00 18 161/106 H 95 08/28/21 01:30 72 18 154/108 H 95 08/28/21 01:00 69 17 169/113 H 96 08/28/21 00:30 75 20 168/115 H 99 08/28/21 00:00 76 16 155/99 H 97 08/27/21 23:56 84 18 98 08/27/21 23:55 36.6 C 84 16 151/99 H 98 08/27/21 22:22 36.4 C L 78 18 169/106 H 98 Pulse Ox 08/28/21 07:05 96 08/28/21 05:13 08/28/21 04:01 08/28/21 04:00 08/28/21 03:56 08/28/21 03:00 08/28/21 02:30 08/28/21 02:00 08/28/21 01:30 08/28/21 01:00 08/28/21 00:30 08/28/21 00:00 08/27/21 23:56 08/27/21 23:55 08/27/21 22:22 Laboratory Results 08/27/21 08/27/21 08/27/21 Range/Units 23:45 23:45 22:48 WBC (4.8-10.8) K/uL RBC (4.7-6.1) M/uL Hgb (14.0-18.0) g/dL Hct (42-52) % MCV (80-100) fL MCH (25-34) pg MCHC (32-36) g/dL RDW Std Deviation (36.4-46.3) fL RDW Coeff of Marlee (11.5-14.5) % Plt Count (130-400) K/uL MPV (7.4-10.4) fL Immature Gran % (Auto) % Neut % (Auto) % Lymph % (Auto) % [place] % (Auto) % Eos % (Auto) % Baso % (Auto) % Neut # (Auto) (1.4-6.5) K/uL Lymph # (Auto) (1.2-3.4) K/uL [place] # (Auto) (0.11-0.59) K/uL Eos # (Auto) (0-0.5) K/uL Baso # (Auto) (0-0.2) K/uL Immature Gran # (Auto) (0.00-0.02) K/uL Sodium (136-145) mmol/L Potassium (3.5-5.1) mmol/L Chloride (98-107) mmol/L Carbon Dioxide (21-32) mmol/L Anion Gap (3-11) BUN (6-23) mg/dl Creatinine (0.6-1.4) mg/dl Est Cr Clr Drug Dosing ml/min Est GFR ( Amer) ml/min Est GFR (Non-Af Amer) ml/min BUN/Creatinine Ratio (10-20) Glucose (70-99(Fasting)) mg/dl Estimat Average Glucose 131 mg/dl Hemoglobin A1c 6.2 H (4.5-5.6) % Calcium (8.5-10.1) mg/dl Magnesium (1.7-2.4) mg/dl Total Bilirubin (0.2-1.0) mg/dl AST (13-39) U/L ALT (7-52) U/L Alkaline Phosphatase (34-104) U/L Total Protein (6.0-8.3) gm/dl Albumin (3.4-5.0) gm/dl Globulin (2.5-4.0) gm/dl Albumin/Globulin Ratio (0.9-2) Lipase (11-82) U/L Urine Color Yellow Urine Appearance Clear (Clear) Urine pH 5.0 (4.5-7.5) Ur Specific [place] 1.022 (1.000-1.030) Urine Protein Trace H (Negative) Urine Glucose (UA) 3+ H (Negative) Urine Ketones Trace H (Negative) Urine Blood Trace H (Negative) Urine Nitrite Negative (Negative) Urine Bilirubin Negative (Negative) Urine Urobilinogen Negative (Negative) Ur Leukocyte Esterase Negative (Negative) Urine WBC (Auto) 1-5 (0-5) /hpf Urine RBC (Auto) 0-4 (0-4) /hpf U Hyaline Cast (Auto) 1-5 (0-5) /lpf U Epithel Cells (Auto) 5-10 H (0-5) /lpf Urine Bacteria (Auto) Negative (Negative) SARS-CoV-2, RNA, NAAT NEGATIVE (NEGATIVE) 08/27/21 08/27/21 08/27/21 Range/Units 22:48 22:48 22:48 WBC 14.58 H (4.8-10.8) K/uL RBC 5.58 (4.7-6.1) M/uL Hgb 17.3 (14.0-18.0) g/dL Hct 50.0 (42-52) % MCV 89.6 (80-100) fL MCH 31.0 (25-34) pg MCHC 34.6 (32-36) g/dL RDW Std Deviation 41.6 (36.4-46.3) fL RDW Coeff of Marlee 12.7 (11.5-14.5) % Plt Count 294 (130-400) K/uL MPV 10.4 (7.4-10.4) fL Immature Gran % (Auto) 0.3 % Neut % (Auto) 80.2 % Lymph % (Auto) 12.0 % [place] % (Auto) 6.9 % Eos % (Auto) 0.5 % Baso % (Auto) 0.1 % Neut # (Auto) 11.68 H (1.4-6.5) K/uL Lymph # (Auto) 1.75 (1.2-3.4) K/uL [place] # (Auto) 1.01 H (0.11-0.59) K/uL Eos # (Auto) 0.07 (0-0.5) K/uL Baso # (Auto) 0.02 (0-0.2) K/uL Immature Gran # (Auto) 0.05 H (0.00-0.02) K/uL Sodium 136 (136-145) mmol/L Potassium 4.4 (3.5-5.1) mmol/L Chloride 98 (98-107) mmol/L Carbon Dioxide 28 (21-32) mmol/L Anion Gap 10 (3-11) BUN 21 (6-23) mg/dl Creatinine 1.52 H (0.6-1.4) mg/dl Est Cr Clr Drug Dosing 62.8 ml/min Est GFR ( Amer) 59.3 ml/min Est GFR (Non-Af Amer) 51.2 ml/min BUN/Creatinine Ratio 13.8 (10-20) Glucose 224 H (70-99(Fasting)) mg/dl Estimat Average Glucose mg/dl Hemoglobin A1c (4.5-5.6) % Calcium 10.1 (8.5-10.1) mg/dl Magnesium 2.1 (1.7-2.4) mg/dl Total Bilirubin 0.4 (0.2-1.0) mg/dl AST 29 (13-39) U/L ALT 44 (7-52) U/L Alkaline Phosphatase 84 (34-104) U/L Total Protein 8.1 (6.0-8.3) gm/dl Albumin 4.6 (3.4-5.0) gm/dl Globulin 3.5 (2.5-4.0) gm/dl Albumin/Globulin Ratio 1.3 (0.9-2) Lipase 6839 H (11-82) U/L Urine Color Urine Appearance (Clear) Urine pH (4.5-7.5) Ur Specific [place] (1.000-1.030) Urine Protein (Negative) Urine Glucose (UA) (Negative) Urine Ketones (Negative) Urine Blood (Negative) Urine Nitrite (Negative) Urine Bilirubin (Negative) Urine Urobilinogen (Negative) Ur Leukocyte Esterase (Negative) Urine WBC (Auto) (0-5) /hpf Urine RBC (Auto) (0-4) /hpf U Hyaline Cast (Auto) (0-5) /lpf U Epithel Cells (Auto) (0-5) /lpf Urine Bacteria (Auto) (Negative) SARS-CoV-2, RNA, NAAT (NEGATIVE)
[2021-08-28] MEDS ORDERED: LABETALOL HCL IV 5 MG/ML 20ML IV STA (11:26)
[2021-08-28] MEDS ORDERED: KETOROLAC TROMETHAMINE 15 MG/ML VIAL IV ONE (11:30)
--- NOTE | 2021-08-28 11:41 | Hospitalist Progress Note ---
Date of Service August 28, 2021 Assessment & Plan (1) Gallstone pancreatitis: Plan: Acute recurrent gallstone pancreatitis. LR was stopped, restarted this now. Sinus tachycardia should improve with IVF and improved pain control. Definitive management with lap lo per surgery, however, MRCP pending to rule out choledocholithiasis. Patient states that he will be able to tolerate the MRI. One dose of toradol now, try to use nonnarcotic or PO narcotic meds to avoid uncontrolled pain. Adding IV Tylenol scheduled to take the edge of, also. (2) Hypertensive urgency: Plan: Situational HTN 2/2 gallstone pancreatitis. Labetalol now. OK to cont amlodipine. May need additional parenteral antihypertensives. Cont aggressive efforts for pain control per plan above. (3) Sinus tachycardia: Plan: 2/2 #1. IVF restarted and cont aggressive pain control efforts. (4) Acute kidney injury: Plan: Creatinine elevated 2/2 #1. Cont IVf and repeat BMP. (5) DVT prophylaxis: Plan: Lovenox Full Dispo-to home when clinically improved. Deanne Roche DO [facility] Hospitalist Admission and Anticipated Discharge Date Admission Date: August 28, 2021 Subjective 56 yo M presents with acute onset of symptoms including epigastric and RUQ pain after dinner last night. pain is 5-6/10 after pain meds needing continuous IV narcotics, however, concern for ileus as a side effect--poor bowel sounds, slightly distended abdomen on exam No BM per patient today patient reports nausea only when pain meds wear off denies any vomiting feels he will be fine for his MRI today had an episode of gallstone pancreatitis two years ago per his report but declined to remove the GB at that time No fevers or chills Review of Systems Review of Systems: All systems were reviewed and negative except as indicated on subjective above. Physical Exam Physical Exam: CONSTITUTIONAL: WNWD, vitals as above, NAD EYES: normal conjunctivae, no scleral icterus, ENT: external ear and nose normal, MMM NECK: trachea midline RESPIRATORY: clear to auscultation bilaterally, no crackles, rales or wheezes, normal respiratory effort CARDIOVASCULAR: regular rate and rhythm, S1 and 2 heard without murmurs, gallops or rubs, no JVD, no peripheral edema GASTROINTESTINAL: hypoactive to absent bowel sounds, slightly distended, protuberant, epigastric TTP and RUQ TTP, no guarding MUSCULOSKELETAL: strength 5/5 throughout, head is normocephalic and atraumatic SKIN: warm and dry NEUROLOGIC: CN 2-12 grossly intact, no sensory deficit, normal cognition, normal speech, no tremor, no gross focal deficits. PSYCHIATRIC: alert cooperative and oriented to person, place and time. Results & Data Results & Data ([facility]) Vital Signs (Past 12 Hours) Vital Signs Temp Pulse Pulse Resp BP BP Pulse Ox 08/28/21 07:05 74 19 182/110 H 96 08/28/21 05:13 36.6 C 67 18 171/109 H 97 08/28/21 04:01 69 16 174/100 H 93 08/28/21 04:00 78 15 96 08/28/21 03:56 73 22 97 08/28/21 03:00 65 158/100 H 96 08/28/21 02:30 70 161/115 H 08/28/21 02:00 18 161/106 H 95 08/28/21 01:30 72 18 154/108 H 95 08/28/21 01:00 69 17 169/113 H 96 08/28/21 00:30 75 20 168/115 H 99 08/28/21 00:00 76 16 155/99 H 97 08/27/21 23:56 84 18 98 08/27/21 23:55 36.6 C 84 16 151/99 H 98 Pulse Ox 08/28/21 07:05 96 08/28/21 05:13 08/28/21 04:01 08/28/21 04:00 08/28/21 03:56 08/28/21 03:00 08/28/21 02:30 08/28/21 02:00 08/28/21 01:30 08/28/21 01:00 08/28/21 00:30 08/28/21 00:00 08/27/21 23:56 08/27/21 23:55 Laboratory Results Short CBC 08/27/21 Range/Units 22:48 WBC 14.58 H (4.8-10.8) K/uL Hgb 17.3 (14.0-18.0) g/dL Hct 50.0 (42-52) % Plt Count 294 (130-400) K/uL BMP 08/27/21 22:48 Sodium 136 Potassium 4.4 Chloride 98 Carbon Dioxide 28 BUN 21 Creatinine 1.52 H Glucose 224 H Calcium 10.1 Liver Function 08/27/21 Range/Units 22:48 Total Bilirubin 0.4 (0.2-1.0) mg/dl AST 29 (13-39) U/L ALT 44 (7-52) U/L Alkaline Phosphatase 84 (34-104) U/L Albumin 4.6 (3.4-5.0) gm/dl Urine 08/27/21 Range/Units 23:45 Urine Color Yellow Urine Appearance Clear (Clear) Urine pH 5.0 (4.5-7.5) Ur Specific [place] 1.022 (1.000-1.030) Urine Protein Trace H (Negative) Urine Glucose (UA) 3+ H (Negative) Diagnostic Findings Chest X-Ray 08/28/21 00:54 XR chest 1V portable CLINICAL HISTORY: Acute renal failure with difficulty breathing. Evaluate for pulmonary edema COMPARISON STUDY: No previous studies for comparison. TECHNIQUE: 1 view of the chest FINDINGS: Single frontal view of the chest demonstrates the cardiomediastinal silhouette to be within normal limits. The lungs are clear of alveolar opacities. There is no evidence for pleural effusion. There is no evidence for vascular congestion. There is no acute osseous pathology. IMPRESSION: No acute cardiopulmonary disease. ACT 112: Negative or not required by law. Electronically signed by: Dao Black M.D. 08/28/2021 7:49 AM Gallbladder Ultrasound 08/28/21 02:21 US gallbladder LIMITED ABDOMEN CLINICAL HISTORY: Upper abdominal pain. Elevated white blood cell count and lipase. COMPARISON: None. TECHNIQUE: Multiple grayscale and color images of the right upper quadrant of the abdomen. FINDINGS: The study is limited by overlying bowel gas. Pancreas: The head and tail of pancreas are not visualized due to overlying bowel gas. There appears to be a fluid collection anterior to the body the pancreas which could represent a bowel loop. Increased echogenicity is present of the body the pancreas. The presence of pancreatic [place] cannot be excluded by this study. CT of the abdomen with contrast would be the study of choice for further evaluation. Liver: The liver is heterogeneous in echogenicity characteristic of fatty infiltration and hepatocellular disease. There is no evidence for a focal mass. There is no intrahepatic biliary duct dilatation. Gallbladder: The gallbladder is distended with calculi seen within the neck of the gallbladder. Posterior acoustic shadowing is present. No definite wall thi ckening or pericholecystic edema is seen. The patient was given pain medication prior to the study and Christina's sign cannot be evaluated. Common Bile Duct: (CBD): It is normal in size measuring 4 mm. Inferior Vena Cava (IVC): The imaged IVC is patent. Right kidney: There is no evidence for hydronephrosis, calculus or gross renal mass. The kidney is normal in size. IMPRESSION: 1. Limited examination with findings suspicious for pancreatitis. However, CT of the abdomen with contrast would be the study of choice for further evaluation. 2. Fatty infiltration of liver. 3. Cholelithiasis with no definite ultrasound evidence for acute cholecystitis. However, the patient was medicated and Christina's sign cannot be evaluated. ACT 112: Negative or not required by law. Electronically signed by: Dao Black M.D. 08/28/2021 8:09 AM Medications Administered Current Inpatient Medications Acetaminophen (Acetaminophen 325 Mg Tab) 650 mg PO Q6H PRN PRN Reason: Fever/pain Stop: 09/27/21 01:58 Amlodipine Besylate (Amlodipine Besylate 5 Mg Tab) 2.5 mg PO HS RICHARD Stop: 09/27/21 20:59 Hydromorphone HCl (Hydromorphone Inj 0.5 Mg/0.5 Ml Syr) 1 mg IV Q3H PRN PRN Reason: Pain Stop: 09/11/21 01:58 Last Admin: 08/28/21 10:25 Dose: 1 mg Documented by: Promethazine HCl 12.5 mg/ (Sodium Chloride) 50.5 mls @ 202 mls/hr IV Q6H PRN PRN Reason: Nausea And Vomiting Stop: 09/27/21 05:12 Lactated Ringer's (Lr) 1,000 mls @ 200 mls/hr IV .Q5H RICHARD Stop: 09/27/21 11:29 Oxycodone HCl (Oxycodone Hcl Ir 5 Mg Tab (Immediate Release)) 5 - 10 mg PO QID PRN PRN Reason: Pain Stop: 09/11/21 05:11
[2021-08-28] MEDS: LACTATED RINGER'S 1,000 ML IV SCH ×3 (13:10→20:52)
[2021-08-28 13:12] LABS: Hematocrit (blood only) 50.1 % (42-52); Hemoglobin 17.4 g/dL (14.0-18.0); Mean Corpuscular Hemoglobin 31.2 pg (25-34); Mean Corpuscular Hgb Conc 34.7 g/dL (32-36); Mean Corpuscular Volume 89.8 fL (80-100); Mean Platelet Volume 10.3 fL (7.4-10.4); Platelet Count 287 K/uL (130-400); RDW Standard Deviation 42.5 fL (36.4-46.3); Red Blood Count 5.58 M/uL (4.7-6.1); White Blood Count 23.39 K/uL (4.8-10.8)
--- NOTE | 2021-08-28 13:45 | Magnetic Resonance Report ---
MR MRCP CLINICAL HISTORY: Cholelithiasis and suspicion of pancreatitis. Evaluate for biliary obstruction. TECHNIQUE: Multiplanar multisequence MR images were obtained of the abdomen, followed by reconstruct ion of MRCP imaging. COMPARISON: Upper quadrant ultrasound from 08/28/2021 and previous MRCP from 04/25/2020 FINDINGS: Liver: There is homogeneous signal intensity seen within the liver. No mass lesions are seen. There i s no evidence for intrahepatic or duct dilatation. Gallbladder: The gallbladder is well distended with cholelithiasis. There is no evidence for wall thi ckening or pericholecystic edema. Spleen: There is homogeneous signal throughout the splenic parenchyma. No mass lesions are seen. Pancreas: There is diffuse edema present involving the pancreas. Prominent peripancreatic inflammator y changes are present with fluid seen surrounding the pancreas and extending into the paracolic gutte rs bilaterally. No focal pseudocyst formation is seen. There is no evidence for a mass lesion. Kidneys: There is homogeneous signal throughout the renal parenchyma bilaterally. Adrenal glands: There is homogeneous signal demonstrated with no gross mass seen. Abdominal cavity: There is no gross bowel dilatation. There is no evidence for ascites or adenopathy. The aorta is normal in caliber. The visualized osseous structures, demonstrate no evidence of abnormal signal intensity. MRCP: The common bile duct is normal in course and caliber. There is no evidence for dilatation. Th ere is no intraluminal filling defects or evidence for choledocholithiasis. There is no intrahepatic or duct dilatation. The pancreatic duct is normal in course and caliber. IMPRESSION: 1. Cholelithiasis with no evidence for wall thickening or pericholecystic edema. 2. Acute pancreatitis with prominent peripancreatic inflammatory changes and fluid seen extending int o the paracolic gutters bilaterally. 3. No evidence for biliary duct dilatation or definite choledocholithiasis. ACT 112: Negative or not required by law. Electronically signed by: Dao Black M.D. 08/28/2021 1:44 PM
[2021-08-28 13:48] LABS: Albumin Globulin Ratio 1.4 (0.9-2); Albumin Level 4.3 gm/dl (3.4-5.0); BUN Creatinine Ratio 17.4 (10-20); Bilirubin,Total 0.8 mg/dl (0.2-1.0); Calcium 9.1 mg/dl (8.5-10.1); Creatinine Clr Calc Pharmacy 78.8 ml/min; Est GFR (African American) 78.2 ml/min; Est GFR (Non-African American) 67.5 ml/min; Globulin 3.1 gm/dl (2.5-4.0); Potassium 4.4 mmol/L (3.5-5.1); Total Protein 7.4 gm/dl (6.0-8.3)
[2021-08-28] MEDS ORDERED: GLUCOSE 10 TABS/TUBE PO PRN (15:49)
[2021-08-28] MEDS ORDERED: GLUCOSE 40% GEL 15 GM TUBE PO PRN (15:49)
[2021-08-28] MEDS ORDERED: CARBOHYDRATES FOR HYPOGLYCEMIA PO PRN (15:49)
[2021-08-28] MEDS ORDERED: DEXTROSE 50% 50 ML SYRINGE IV PRN (15:49)
[2021-08-28] MEDS ORDERED: GLUCAGON FOR INJ 1 MG VIAL SQ PRN (15:49)
[2021-08-28] MEDS: INSULIN ASPART PER UNIT SC SCH ×2 (16:52→23:42)
[2021-08-28] MEDS: oxyCODONE HCL IR 5 MG TAB (IMMEDIATE RELEASE) PO PRN (18:15)
[2021-08-28] MEDS ORDERED: amLODIPine BESYLATE 5 MG TAB PO SCH (21:00)
--- NOTE | 2021-08-28 21:11 | Electrocardiogram Report ---
Test Reason : Blood Pressure : / mmHG Vent. Rate : 076 BPM Atrial Rate : 076 BPM P-R Int : 144 ms QRS Dur : 084 ms QT Int : 370 ms P-R-T Axes : 037 006 013 degrees QTc Int : 416 ms Normal sinus rhythm Normal ECG When compared with ECG of 25-APR-2020 11:26, No significant change was found Confirmed by Raul Fishre ([id number]) on 08/28/2021 9:11:09 PM Referred By: REFERRED SELF Confirmed By:Raul Fisher
[2021-08-28] MEDS: ACETAMINOPHEN 1,000 MG/100 ML VIAL IV SCH ×2 (21:38→22:02)
[2021-08-28] MEDS ORDERED: METOPROLOL TARTRATE 1 MG/ML VIAL IV STA (22:27)
[2021-08-28] MEDS: INSULIN GLARGINE SOLOSTAR 100 UNITS/ML 3 ML PEN SC SCH (23:41)
[2021-08-28 23:55] LABS: BUN Creatinine Ratio 20.5 (10-20); Calcium 8.2 mg/dl (8.5-10.1); Creatinine Clr Calc Pharmacy 78.2 ml/min; Est GFR (African American) 77.4 ml/min; Est GFR (Non-African American) 66.8 ml/min; Magnesium 1.9 mg/dl (1.7-2.4)
[2021-08-29] MEDS: INSULIN ASPART PER UNIT SC SCH ×4 (00:10→19:05)
[2021-08-29] MEDS: HYDROmorphone INJ 0.5 MG/0.5 ML SYR IV PRN ×7 (00:11→21:32)
[2021-08-29] MEDS ORDERED: MAGNESIUM SULFATE / D5W 1 GM/100 ML BAG IV ONE (00:45)
[2021-08-29] MEDS: LACTATED RINGER'S 1,000 ML IV SCH ×5 (01:02→22:17)
[2021-08-29] MEDS: oxyCODONE HCL IR 5 MG TAB (IMMEDIATE RELEASE) PO PRN (02:27)
[2021-08-29] MEDS ORDERED: cloNIDine HCL 0.1 MG TAB PO ONE (05:07)
[2021-08-29] MEDS ORDERED: METOPROLOL TARTRATE 1 MG/ML VIAL IV STA (05:17)
[2021-08-29] MEDS: ACETAMINOPHEN 1,000 MG/100 ML VIAL IV SCH ×3 (05:29→20:41)
[2021-08-29 07:30] LABS: Basophils # (auto) 0.01 K/uL (0-0.2); Basophils % (auto) 0.1 %; Eosinophils # (auto) 0.01 K/uL (0-0.5); Eosinophils % (auto) 0.1 %; Hemoglobin 14.9 g/dL (14.0-18.0); Immature Granulocytes # (auto) 0.03 K/uL (0.00-0.02); Immature Granulocytes % (auto) 0.2 %; Lymphocytes # (auto) 1.02 K/uL (1.2-3.4); Lymphocytes % (auto) 5.8 %; Mean Corpuscular Hgb Conc 33.9 g/dL (32-36); Mean Corpuscular Volume 91.7 fL (80-100); Mean Platelet Volume 10.5 fL (7.4-10.4); Monocytes # (auto) 1.35 K/uL (0.11-0.59); Monocytes % (auto) 7.7 %; Neutrophils # (auto) 15.22 K/uL (1.4-6.5); Neutrophils % (auto) 86.1 %; Platelet Count 239 K/uL (130-400); RDW Coefficient of Variation 13.6 % (11.5-14.5); RDW Standard Deviation 45.5 fL (36.4-46.3); White Blood Count 17.64 K/uL (4.8-10.8)
[2021-08-29] MEDS: amLODIPine BESYLATE 5 MG TAB PO SCH (07:44)
[2021-08-29] MEDS: ENOXAPARIN INJ 40 MG/0.4 ML SYR SQ SCH (07:44)
[2021-08-29 08:10] LABS: Albumin Globulin Ratio 1.5 (0.9-2); Albumin Level 3.4 gm/dl (3.4-5.0); BUN Creatinine Ratio 19.7 (10-20); Bilirubin,Total 0.9 mg/dl (0.2-1.0); Calcium 7.8 mg/dl (8.5-10.1); Creatinine Clr Calc Pharmacy 78.5 ml/min; Est GFR (African American) 77.4 ml/min; Est GFR (Non-African American) 66.8 ml/min; Globulin 2.3 gm/dl (2.5-4.0); Potassium 4.4 mmol/L (3.5-5.1); Total Protein 5.7 gm/dl (6.0-8.3)
--- NOTE | 2021-08-29 08:56 | Surgery Progress Note ---
Date of Service August 29, 2021 Assessment & Plan (1) Gallstone pancreatitis: Plan: Patient feeling mild improvement in his symptoms WBC 17, LFTs unremarkable, Lipase is pending... Pt afebrile, tachycardic, and hypertensive On exam patient has generalized discomfort to palpation in the abdomen MRCP yesterday revealed + stones with acute pancreatitis, no definitive evidence of CBD stones. GI not planning on ERCP at this time We will await lipase labs, if continued progress clinically we will proceed with lap lo tomorrow Continue NPO with IVF Pt seen/examined with Dr. Alvarado Admission and Anticipated Discharge Date Admission Date: August 28, 2021 Supervising Physician Co-Signing Physician Notes I personally saw and examined the patient with Lakisha Guaman PA-C and agree with the assessment and plan. 56-year-old male with a gallstone pancreatitis He seems to be improving slowly, lipase trending down Continue to keep him n.p.o. with IV hydration If he continues to improve clinically we will tentatively plan on laparoscopic cholecystectomy, possible open tomorrow pending his clinical course We will follow Subjective Patient feeling a little bit better than yesterday. Some nausea feelings, no emesis. No BM. Remains with belly pain. Physical Exam Physical Exam: awake/alert, no distress Gastrointestinal (Abdomen): Inspection/Auscultation: + abdomen distended Percussion/Palpation: + abdomen tender (generalized discomfort to palpation) and abdomen soft Results & Data ([facility]) Vital Signs (Past 12 Hours) Vital Signs Temp Pulse Pulse Resp BP BP BP 08/29/21 07:37 106 H 08/29/21 07:22 37.2 C 105 H 20 160/99 H 08/29/21 03:40 37.3 C 118 H 20 170/114 H 08/28/21 23:01 138 H 159/97 H 08/28/21 22:18 137 H 08/28/21 22:13 36.6 C 138 H 18 159/97 H Pulse Ox 08/29/21 07:37 08/29/21 07:22 90 08/29/21 03:40 92 08/28/21 23:01 08/28/21 22:18 08/28/21 22:13 91 PG Care Time/CCT Total # of Minutes Spent Total Time Spent with Patient: Total time spent is greater than 50% in coordination of care (as documented) at patient's floor/unit and/or counseling patient: Coding Level of Care Code 14342 Subseq Hosp Care Lvl 1 Diagnoses Gallstone pancreatitis K85.10
--- NOTE | 2021-08-29 08:59 | Communication Note ---
Date of Service: August 29, 2021 MRCP reviewed. CBD is WNL without evidence of sludge, stones or dilation. No current indication or plan for endoscopic procedure. Recommend treatment of pancreatitis per yesterday notes and proceeding with plan for general surgery. Recall GI as needed. Thank you for allowing us to participate in the care of this patient. Please call with any acute changes, questions or concerns. Please see addendum below with additional recommendation from my supervising physician.
--- NOTE | 2021-08-29 11:59 | Electrocardiogram Report ---
Test Reason : Blood Pressure : / mmHG Vent. Rate : 133 BPM Atrial Rate : 133 BPM P-R Int : 158 ms QRS Dur : 074 ms QT Int : 272 ms P-R-T Axes : 051 087 019 degrees QTc Int : 404 ms Sinus tachycardia T wave abnormality, consider inferior ischemia Abnormal ECG When compared with ECG of 28-AUG-2021 01:33, Vent. rate has increased BY 57 BPM Questionable change in QRS axis Nonspecific T wave abnormality now evident in Anterolateral leads Confirmed by Raul Fisher ([id number]) on 08/29/2021 11:59:36 AM Referred By: REFERRED SELF Confirmed By:Raul Fisher
--- NOTE | 2021-08-29 13:29 | Hospitalist Progress Note ---
Date of Service August 29, 2021 Assessment & Plan (1) Gallstone pancreatitis: Plan: Situational hypertension secondary to above Possible chronic BP elevation given LAE on prior EKG ARF Hyperglycemia rule out DM Leukocytosistrending down Amlodipine, metoprolol 50 twice daily added Analgesia Bowel rest Baseline UA, monitor creatinine response to IVF GI on case Surgery on case possible lap lo tomorrow DVT prophylaxis. SCDs Re: Cholecystectomy Full code ROS-No Headache, No Visual Changes, No Nausea, No Vomiting, No Fever, No Chills, No Neck Pain or Stiffness, No Chest Pain, No Palpitations, No SOB, No SMITH, No Cough, No Sputum, No Wheezing, positive abdominal Pain, No Diarrhea, No Hematemesis, No Hemoptysis, No Unexpected Weight Loss, No Flank pain, No Melena, No Hematochezia, No Frequency, No Urgency, No Burning, No Hematuria, No Rashes, No Diaphoresis. Appetite is Normal Physical Exam Gen-AAO x 3, NAD, Afebrile Head-NCAT, EOMI, PERRLA, Anicteric Sclera, No Posterior Pharyngeal Erythema Neck-Supple, No JVD, No Thyromegaly, No Masses, No LAD, No Bruits Lungs-Clear to Auscultation Bilaterally, No Rales, No Rhonchi, No Wheezing, No Crepitus Chest-No S4, +S1, +S2, No S3, No Murmurs, No Rubs, No Gallops, No Ectopy Abdomen-Soft, Bowel Sounds Present, mildly tender, slightly distended, No Hepatomegaly, No Splenomegaly, No Palpable Masses, No Rebound, No Rigidity, No Guarding Musculoskeletal-Full Range of Motion Bilaterally, No CVAT Extremities-No Cyanosis, No Clubbing, No Edema Nuero-Cranial Nerves II-XII grossly intact, Motor WNL, DTRs WNL, Strength WNL, Non Focal Psych-Normal Mood Admission and Anticipated Discharge Date Admission Date: August 28, 2021 Subjective Patient seen, complaining of mild abdominal pain, pain medicine is working. Results & Data Results & Data ([facility]) Vital Signs (Past 12 Hours) Vital Signs Temp Pulse Pulse Resp BP Pulse Ox 08/29/21 11:38 36.8 C 121 H 20 167/99 H 90 08/29/21 07:37 106 H 08/29/21 07:22 37.2 C 105 H 20 160/99 H 90 08/29/21 03:40 37.3 C 118 H 20 170/114 H 92
[2021-08-29] MEDS ORDERED: METOPROLOL TARTRATE 50 MG TAB PO STA (13:35)
--- NOTE | 2021-08-29 16:18 | Anesthesiology Consultation ---
Date of Service August 29, 2021 Assessment & Plan (1) Encounter for pre-operative examination: Chart Review Chart Review: Acceptable Risk for Surgery History Surgery Operation Date: 08/30/21 07:15 Proposed Procedures p Laparoscopic Cholecystectomy - Mono Alvarado DO Height/Weight Height: 5 ft 9 in Weight: 94.3 kg Allergies Allergy/AdvReac Type Severity Reaction Status Date / Time hornet venom AdvReac Severe Anaphylaxis Unverified 08/28/21 01:13 Medications Home Medications Medication Instructions Recorded Confirmed Last Taken bismuth subsalicylate 262 mg 2 tab PO QID PRN 08/28/21 08/28/21 Unknown tablet (Pepto-Bismol) ibuprofen 200 mg tablet 800 mg PO TID PRN 08/28/21 08/28/21 08/27/21 20:30 Active Medications Generic Name Dose Route Start Last Admin Trade Name Freq PRN Reason Stop Dose Admin Amlodipine Besylate 5 mg 08/29/21 06:15 08/29/21 07:44 Amlodipine Besylate 5 Mg Tab PO 09/28/21 06:14 5 mg DAILY RICHARD Administration Enoxaparin Sodium 40 mg 08/29/21 09:00 08/29/21 07:44 Enoxaparin Inj 40 Mg/0.4 Ml Syr SQ 09/28/21 08:59 40 mg QAM RICHARD Administration Hydromorphone HCl 1 mg 08/28/21 05:11 08/29/21 14:50 Hydromorphone Inj 0.5 Mg/0.5 Ml Syr IV 09/11/21 01:58 1 mg Q3H PRN Administration Pain Acetaminophen 1,000 mg in 100 mls @ 400 mls/hr 08/28/21 21:00 08/29/21 12:55 Ofirmev IV 08/30/21 20:59 Infused Q8H RICHARD Infusion Lactated Ringer's 1,000 mls @ 200 mls/hr 08/29/21 00:30 08/29/21 11:40 Lr IV 09/28/21 00:29 200 mls/hr .Q5H RICHARD Administration Insulin Aspart 0 units 08/29/21 00:00 08/29/21 11:51 Insulin Aspart Per Unit SC 09/27/21 16:29 Not Given Q6 RICHARD Insulin Glargine 10 units 08/28/21 21:00 08/28/21 23:41 Insulin Glargine Solostar 100 Units/Ml 3 Ml Pen SC 09/27/21 20:59 10 units HS RICHARD Administration Oxycodone HCl 5 - 10 mg 08/28/21 05:12 08/29/21 02:27 Oxycodone Hcl Ir 5 Mg Tab (Immediate Release) PO 09/11/21 05:11 10 mg QID PRN Administration Pain Past Medical History Medical History Acute pancreatitis Diverticulosis Past Family History Family History Other Family history unknown Past Surgical History Surgical History History of colonoscopy Social History Smoking Status: Never smoker Hx Alcohol Use: Yes Alcohol type: beer alcohol intake frequency: holidays/special occasions only Hx Substance Use: No Physical Exam Vital Signs Last Vital Signs Temp 37.3 C 08/29/21 15:15 Pulse 110 H 08/29/21 15:40 Resp 20 08/29/21 15:15 BP 164/95 H 08/29/21 15:15 Pulse Ox 92 08/29/21 15:15 Testing Laboratory Results 08/29/21 06:51 08/29/21 06:51 Hemoglobin A1c 6.2 % (4.5-5.6) H 08/27/21 22:48 Urine Color Yellow 08/27/21 23:45 Urine Appearance Clear (Clear) 08/27/21 23:45 Urine pH 5.0 (4.5-7.5) 08/27/21 23:45 Ur Specific [place] 1.022 (1.000-1.030) 08/27/21 23:45 Urine Protein Trace (Negative) H 08/27/21 23:45 Urine Glucose (UA) 3+ (Negative) H 08/27/21 23:45 Urine Ketones Trace (Negative) H 08/27/21 23:45 Urine Nitrite Negative (Negative) 08/27/21 23:45 Ur Leukocyte Esterase Negative (Negative) 08/27/21 23:45 Urine WBC (Auto) 1-5 /hpf (0-5) 08/27/21 23:45 Urine RBC (Auto) 0-4 /hpf (0-4) 08/27/21 23:45 U Hyaline Cast (Auto) 1-5 /lpf (0-5) 08/27/21 23:45 U Epithel Cells (Auto) 5-10 /lpf (0-5) H 08/27/21 23:45 Urine Bacteria (Auto) Negative (Negative) 08/27/21 23:45 08/29/21 08/29/21 08/28/21 11:29 06:27 16:08 POC Glucose 142 H 156 H 208 H Electrocardiogram Date: 08/28/21 Findings: + NSST changes (inferior) and + ST @ (133) Chest X-Ray Date: 08/28/21 Findings: + NAD
[2021-08-29] MEDS: METOPROLOL TARTRATE 50 MG TAB PO SCH (20:45)
[2021-08-29] MEDS: INSULIN GLARGINE SOLOSTAR 100 UNITS/ML 3 ML PEN SC SCH (20:45)
[2021-08-30] MEDS: ALUMINUM/MAGNESIUM/SIMETH (MAALOX MAX) 30 ML UDC PO PRN (00:06)
[2021-08-30] MEDS: INSULIN ASPART PER UNIT SC SCH ×5 (00:20→20:09)
[2021-08-30] MEDS: HYDROmorphone INJ 0.5 MG/0.5 ML SYR IV PRN ×5 (00:31→19:29)
[2021-08-30] MEDS: LACTATED RINGER'S 1,000 ML IV SCH ×4 (03:17→17:56)
[2021-08-30] MEDS: ACETAMINOPHEN 1,000 MG/100 ML VIAL IV SCH ×2 (05:50→14:07)
[2021-08-30 05:54] LABS: Hematocrit (blood only) 39.4 % (42-52); Hemoglobin 13.1 g/dL (14.0-18.0); Mean Corpuscular Hemoglobin 30.9 pg (25-34); Mean Corpuscular Hgb Conc 33.2 g/dL (32-36); Mean Corpuscular Volume 92.9 fL (80-100); Mean Platelet Volume 10.4 fL (7.4-10.4); Platelet Count 209 K/uL (130-400); RDW Coefficient of Variation 13.5 % (11.5-14.5); RDW Standard Deviation 46.2 fL (36.4-46.3); Red Blood Count 4.24 M/uL (4.7-6.1); White Blood Count 16.73 K/uL (4.8-10.8)
[2021-08-30 06:10] LABS: Albumin Globulin Ratio 1.3 (0.9-2); Albumin Level 3.3 gm/dl (3.4-5.0); Bilirubin,Total 1.4 mg/dl (0.2-1.0); Calcium 8.1 mg/dl (8.5-10.1); Creatinine Clr Calc Pharmacy 95.6 ml/min; Est GFR (African American) 98.5 ml/min; Est GFR (Non-African American) 84.9 ml/min; Globulin 2.6 gm/dl (2.5-4.0); Potassium 3.9 mmol/L (3.5-5.1); Total Protein 5.9 gm/dl (6.0-8.3)
[2021-08-30] MEDS ORDERED: fentaNYL citrate 100 MCG/2 ML VIAL ONE (06:41)
[2021-08-30] MEDS ORDERED: MIDAZOLAM HCL 1 MG/ML 2ML VIAL ONE (06:41)
[2021-08-30] MEDS ORDERED: GLYCOPYRROLATE 0.2 MG/ML VIAL ONE (06:42)
[2021-08-30] MEDS ORDERED: PROPOFOL IV EMULSION 10 MG/ML 20 ML VIAL IV ONE (06:42)
[2021-08-30] MEDS ORDERED: ONDANSETRON INJ 2 MG/ML 2 ML VIAL ONE (06:42)
[2021-08-30] MEDS ORDERED: NEOSTIGMINE METHYLSULFATE 1 MG/ML 10ML VIAL ONE (06:42)
[2021-08-30] MEDS ORDERED: LIDOCAINE 2% 2 ML VIAL/AMP(20MG/ML) INFIL ONE (06:42)
[2021-08-30] MEDS ORDERED: ROCURONIUM BROMIDE 10 MG/ML 5 ML VIAL IV ONE (06:42)
[2021-08-30] MEDS ORDERED: DEXAMETHASONE SOD INJ 4 MG/ML VIAL ONE (06:42)
[2021-08-30] MEDS ORDERED: BUPIVACAINE/EPINEPHRINE 0.25% 1:200,000 30 ML VIAL ONE (07:07)
--- NOTE | 2021-08-30 07:20 | History & Physical Bridge Note ---
Date of Service August 30, 2021 History & Physical Bridge Note I have examined the patient, reviewed the History & Physical and in the interval since the performance of the History & Physical I have noted the following changes of clinical significance: no changes noted
[2021-08-30] MEDS ORDERED: ceFAZolin 2000MG 2,000 MG/15 ML SYR IV ONE (07:59)
[2021-08-30] MEDS ORDERED: ONDANSETRON INJ 2 MG/ML 2 ML VIAL IV PRN (08:18)
[2021-08-30] MEDS ORDERED: ATROPINE SULFATE 0.1 MG/ML 10ML SYR IV PRN (08:18)
[2021-08-30] MEDS ORDERED: ePHEDrine sulfate 50 MG/ML AMP IV PRN (08:18)
[2021-08-30] MEDS ORDERED: HYDROmorphone INJ 2 MG/ML SYR/VIAL IV PRN (08:18)
[2021-08-30] MEDS ORDERED: PROMETHAZINE HCL 12.5 MG in SODIUM CHLORIDE 0.9% 50 ML IV PRN (08:18)
[2021-08-30] MEDS ORDERED: ceFAZolin 330 MG/ML 1 GM VIAL ONE (08:20)
--- NOTE | 2021-08-30 08:54 | Post Operative Brief Note ---
PG Immediate Post Op with CF Date of Surgery August 30, 2021 Pre & Post Diagnosis Operation Date: 08/30/21 07:15 Pre-Op Diagnosis: Gallstone pancreatitis Post-Op Diagnosis: Gallstone pancreatitis I identified the patient and participated in the time-out.: Yes Procedure Operation Date: 08/30/21 07:15 Actual Procedures p Laparoscopic Cholecystectomy(Not Applicable) - Mono Alvarado DO Surgeon Mono Alvarado DO Social Sciences Chair Lakisha Guaman PA-C Estimated Blood Loss 15 Findings See Below Specimens Specimen Description: A. Gallbladder and contents Anesthesia Type General Complications none Disposition Disposition: Recovery Room
--- NOTE | 2021-08-30 08:58 | Operative Report ---
PG Post Operative Report Pre & Post Diagnosis Operation Date: 08/30/21 07:15 Pre-Op Diagnosis: Gallstone pancreatitis Post-Op Diagnosis: Gallstone pancreatitis I identified the patient and participated in the time-out.: Yes Procedure Operation Date: 08/30/21 07:15 Actual Procedures p Laparoscopic Cholecystectomy(Not Applicable) - Mono Alvarado DO Surgeon Mono Alvarado DO Health Sciences Dean Lakisha Guaman PA-C Estimated Blood Loss 15 Findings See Below Mild inflammation of gallbladder, mild periportal ascites Fluids see anesthesia record Specimens Gallbladder to pathology Drains None Anesthesia Type General Complications none Disposition Disposition: Recovery Room Indications 56 yo male with gallstone pancreatitis Description of Procedure The patient was brought to the operating room and placed in the supine position with both arms extended. At this time she underwent general endotracheal anesthesia without any problems. She was given appropriate pre-operative antibiotics. Her abdomen prepped and draped in the usual sterile fashion. A timeout was called, the procedure was verified as Laparoscopic cholecystectomy, possible open, possible intra-operative cholangiogram. Surgical, nursing and anesthesia teams agreed and the procedure was begun. After injection of 0.25% Marcaine with epinephrine, a supraumbilical vertical incision was made and carried down to the fascia using S-retractors. The abdominal wall was then elevated with towel clamps and abdomen entered using the Veress needle confirming position using the saline drop test. Pneumoperitoneum was established. 5mm trocar was placed. Laparoscope was introduced. No injury from entry into the abdomen was visualized after inspection of the abdomen. Three further ports were placed under direct visualization. One 11mm in the subxiphoid region and two 5mm in the RUQ. At this time the abdomen was inspected and the gallbladder identified. There was gallbladder inflammation and some ascites seen and suctioned near the liat hepatis. The gallbladder fundus was grasped and retracted cephalad. The gallbladder infundibulum was then grasped and retracted laterally. The cystic duct and cystic artery were then identified and skeletonized. The critical view of safety was obtained. They were both then clipped twice proximally and once distally and then divided using scissors. The gallbladder was then taken off of the liver bed using electrocautery and placed in an endocatch bag and removed from the subxiphoid port. The liver bed was then inspected and no bile leak or bleeding was evident. The trocars were then removed under direct visualization and no bleeding was present. The subxiphoid port was then closed using 0-Vicryl using the suture passer. Abdomen was desufflated. The skin was then closed using 4-0 Monocryl in a subcuticular fashion. Surgical glue was applied. Needle and sponge counts were correct x 2. At this time the patient was awoken from anesthesia and extubated having remained stable throughout the entire case. The patient was then transported to PACU in stable condition. The physician esl instructional assistant was present and scrubbed throughout the entire case. She was essential in positioning, prepping and draping the patient, driving the laparoscope, retraction and exposure, closure of the incisions and placement of the dressings. I attest to the content of the Intraoperative Record and any orders documented therein. Any exceptions are noted below.
--- NOTE | 2021-08-30 09:51 | Anesthesiology Progress Note ---
Date of Service August 30, 2021 Anesthesia Post Procedure Vital Signs Vital Signs: Temp Pulse Pulse Pulse Resp BP BP 08/30/21 09:40 99.7 F H 75 16 144/89 H 08/30/21 09:30 68 15 138/86 08/30/21 09:20 80 14 142/88 H 08/30/21 09:10 97.9 F 73 14 139/84 08/30/21 07:28 79 08/30/21 07:09 98.1 F 82 20 168/99 H 08/30/21 02:58 98.8 F 91 H 16 161/103 H 08/29/21 23:01 99.1 F 101 H 16 158/105 H 08/29/21 22:18 93 H 08/29/21 19:25 98.2 F 118 H 18 147/99 H 08/29/21 15:40 110 H 08/29/21 15:15 99.1 F 110 H 20 164/95 H 08/29/21 11:38 98.2 F 121 H 20 167/99 H Pulse Ox 08/30/21 09:40 93 08/30/21 09:30 95 08/30/21 09:20 94 08/30/21 09:10 92 08/30/21 07:28 08/30/21 07:09 95 08/30/21 02:58 93 08/29/21 23:01 93 08/29/21 22:18 08/29/21 19:25 88 L 08/29/21 15:40 08/29/21 15:15 92 08/29/21 11:38 90 Pain Intensity Abdomen: Pain Intensity: 7 Transfer of Care Handoff Completed per policy Notes Mental Status: alert / awake / arousable and participated in evaluation Patient Amnestic to Procedure: Yes Nausea / Vomiting: adequately controlled Pain: adequately controlled Airway Patency, RR, SpO2: stable & adequate BP & HR: stable & adequate Hydration State: stable & adequate Anesthetic Complications: no major complications apparent and Pt Satisfied with anesthetic care
--- NOTE | 2021-08-30 10:32 | Hospitalist Progress Note ---
Date of Service August 30, 2021 Assessment & Plan (1) Gallstone pancreatitis: Plan: Situational hypertension secondary to above Possible chronic BP elevation given LAE on prior EKG ARF Hyperglycemia Leukocytosistrending down Amlodipine, metoprolol 50 twice daily added GI on case Surgery on case for lap lo today DVT prophylaxis. SCDs Re: Cholecystectomy Full code ROS-No Headache, No Visual Changes, No Nausea, No Vomiting, No Fever, No Chills, No Neck Pain or Stiffness, No Chest Pain, No Palpitations, No SOB, No SMITH, No Cough, No Sputum, No Wheezing, positive abdominal Pain, No Diarrhea, No Hematemesis, No Hemoptysis, No Unexpected Weight Loss, No Flank pain, No Melena, No Hematochezia, No Frequency, No Urgency, No Burning, No Hematuria, No Rashes, No Diaphoresis. Appetite is Normal Physical Exam Gen-AAO x 3, NAD, Afebrile Head-NCAT, EOMI, PERRLA, Anicteric Sclera, No Posterior Pharyngeal Erythema Neck-Supple, No JVD, No Thyromegaly, No Masses, No LAD, No Bruits Lungs-Clear to Auscultation Bilaterally, No Rales, No Rhonchi, No Wheezing, No Crepitus Chest-No S4, +S1, +S2, No S3, No Murmurs, No Rubs, No Gallops, No Ectopy Abdomen-Soft, Bowel Sounds Present, mildly tender, slightly distended, No Hepatomegaly, No Splenomegaly, No Palpable Masses, No Rebound, No Rigidity, No Guarding Musculoskeletal-Full Range of Motion Bilaterally, No CVAT Extremities-No Cyanosis, No Clubbing, No Edema Nuero-Cranial Nerves II-XII grossly intact, Motor WNL, DTRs WNL, Strength WNL, Non Focal Psych-Normal Mood Admission and Anticipated Discharge Date Admission Date: August 28, 2021 Subjective Patient seen, s/p Lap Lo today. Results & Data Results & Data ([facility]) Vital Signs (Past 12 Hours) Vital Signs Temp Pulse Pulse Pulse Resp BP Pulse Ox 08/30/21 10:00 72 16 140/85 93 08/30/21 09:50 67 16 145/85 H 93 08/30/21 09:40 37.6 C H 75 16 144/89 H 93 08/30/21 09:30 68 15 138/86 95 01/20/22 09:20 80 14 142/88 H 94 08/30/21 09:10 36.6 C 73 14 139/84 92 08/30/21 07:28 79 08/30/21 07:09 36.7 C 82 20 168/99 H 95 08/30/21 02:58 37.1 C 91 H 16 161/103 H 93 08/29/21 23:01 37.3 C 101 H 16 158/105 H 93
[2021-08-30] MEDS: ENOXAPARIN INJ 40 MG/0.4 ML SYR SQ SCH (10:45)
[2021-08-30] MEDS: METOPROLOL TARTRATE 50 MG TAB PO SCH ×2 (12:05→22:01)
[2021-08-30] MEDS: amLODIPine BESYLATE 5 MG TAB PO SCH (12:05)
[2021-08-30] MEDS: INSULIN GLARGINE SOLOSTAR 100 UNITS/ML 3 ML PEN SC SCH (22:01)
[2021-08-30] MEDS: oxyCODONE HCL IR 5 MG TAB (IMMEDIATE RELEASE) PO PRN (22:07)
[2021-08-30] MEDS ORDERED: ACETAMINOPHEN 1000 MG/100 ML IV IV PRN (23:11)
[2021-08-31] MEDS: LACTATED RINGER'S 1,000 ML IV SCH ×4 (00:34→20:28)
[2021-08-31] MEDS: HYDROmorphone INJ 0.5 MG/0.5 ML SYR IV PRN ×6 (00:39→13:41)
[2021-08-31] MEDS: METOPROLOL TARTRATE 50 MG TAB PO SCH ×2 (08:39→21:33)
[2021-08-31] MEDS: amLODIPine BESYLATE 5 MG TAB PO SCH (08:39)
[2021-08-31] MEDS: INSULIN ASPART PER UNIT SC SCH ×4 (08:40→21:32)
[2021-08-31 09:45] LABS: Hematocrit (blood only) 37.8 % (42-52); Hemoglobin 12.6 g/dL (14.0-18.0); Mean Corpuscular Hemoglobin 30.7 pg (25-34); Mean Corpuscular Hgb Conc 33.3 g/dL (32-36); Mean Corpuscular Volume 92.2 fL (80-100); Mean Platelet Volume 10.5 fL (7.4-10.4); Platelet Count 243 K/uL (130-400); RDW Coefficient of Variation 13.8 % (11.5-14.5); RDW Standard Deviation 46.9 fL (36.4-46.3); White Blood Count 16.32 K/uL (4.8-10.8)
[2021-08-31 10:30] LABS: Bilirubin,Total 0.7 mg/dl (0.2-1.0)
[2021-08-31 10:31] LABS: Albumin Globulin Ratio 1.1 (0.9-2); Albumin Level 3.2 gm/dl (3.4-5.0); BUN Creatinine Ratio 24.5 (10-20); Calcium 7.8 mg/dl (8.5-10.1); Creatinine Clr Calc Pharmacy 90.9 ml/min; Est GFR (African American) 91.8 ml/min; Est GFR (Non-African American) 79.2 ml/min; Globulin 2.8 gm/dl (2.5-4.0); Potassium 3.9 mmol/L (3.5-5.1)
--- NOTE | 2021-08-31 11:09 | Surgery Progress Note ---
Date of Service August 31, 2021 Assessment & Plan (1) Gallstone pancreatitis: Plan: Doing well postoperatively Tolerating clears, can advance as tolerated He is somewhat distended and may have an ileus from his combined cholecystectomy and acute pancreatitis No need for antibiotics from a surgical standpoint Will follow Admission and Anticipated Discharge Date Admission Date: August 28, 2021 Subjective Patient seen and examined. Still with some abdominal pain but not worsening. Tolerating clear liquids. No BM or flatus. Physical Exam Constitutional: WD/WN, vitals as above Gastrointestinal (Abdomen): Inspection/Auscultation: + abdomen distended Percussion/Palpation: + abdomen tender (Appropriately) and abdomen soft; no guarding Incision dressingsclean dry and intact Results & Data ([facility]) Vital Signs (Past 12 Hours) Vital Signs Temp Pulse Pulse Pulse Resp BP Pulse Ox 08/31/21 08:12 36.7 C 66 22 131/75 91 08/31/21 07:49 64 08/31/21 02:51 36.7 C 82 18 130/87 92 PG Care Time/CCT Total # of Minutes Spent Total Time Spent with Patient: Total time spent is greater than 50% in coordination of care (as documented) at patient's floor/unit and/or counseling patient: Coding Level of Care Code None Diagnoses Gallstone pancreatitis K85.10
--- NOTE | 2021-08-31 11:37 | Hospitalist Progress Note ---
Date of Service August 31, 2021 Assessment & Plan (1) Gallstone pancreatitis: Plan: Situational hypertension secondary to above Possible chronic BP elevation given LAE on prior EKG ARF Hyperglycemia Leukocytosistrending down Amlodipine, metoprolol 50 twice daily added Surgery on case s/p lap lo DVT prophylaxis. SCDs Re: Cholecystectomy, Resume a/c Full code ROS-No Headache, No Visual Changes, No Nausea, No Vomiting, No Fever, No Chills, No Neck Pain or Stiffness, No Chest Pain, No Palpitations, No SOB, No SMITH, No Cough, No Sputum, No Wheezing, positive abdominal Pain, No Diarrhea, No Hematemesis, No Hemoptysis, No Unexpected Weight Loss, No Flank pain, No Melena, No Hematochezia, No Frequency, No Urgency, No Burning, No Hematuria, No Rashes, No Diaphoresis. Appetite is Normal, No BM or Flatus Physical Exam Gen-AAO x 3, NAD, Afebrile Head-NCAT, EOMI, PERRLA, Anicteric Sclera, No Posterior Pharyngeal Erythema Neck-Supple, No JVD, No Thyromegaly, No Masses, No LAD, No Bruits Lungs-Clear to Auscultation Bilaterally, No Rales, No Rhonchi, No Wheezing, No Crepitus Chest-No S4, +S1, +S2, No S3, No Murmurs, No Rubs, No Gallops, No Ectopy Abdomen-Soft, Bowel Sounds Present, tender, non distended, No Hepatomegaly, No Splenomegaly, No Palpable Masses, No Rebound, No Rigidity, + Guarding Musculoskeletal-Full Range of Motion Bilaterally, No CVAT Extremities-No Cyanosis, No Clubbing, No Edema Nuero-Cranial Nerves II-XII grossly intact, Motor WNL, DTRs WNL, Strength WNL, Non Focal Psych-Normal Mood Admission and Anticipated Discharge Date Admission Date: August 28, 2021 Subjective Patient seen and examined. Still with some abdominal pain. Tolerating clear liquids. No BM or flatus. Pain around a 5 Results & Data Results & Data ([facility]) Vital Signs (Past 12 Hours) Vital Signs Temp Pulse Pulse Pulse Resp BP Pulse Ox 08/31/21 08:12 36.7 C 66 22 131/75 91 08/31/21 07:49 64 08/31/21 02:51 36.7 C 82 18 130/87 92
[2021-08-31] MEDS: HYDROmorphone INJ 1 MG/ML SYRINGE IV PRN ×2 (15:51→22:00)
[2021-08-31] MEDS: oxyCODONE HCL IR 5 MG TAB (IMMEDIATE RELEASE) PO PRN (20:01)
[2021-08-31] MEDS: INSULIN GLARGINE SOLOSTAR 100 UNITS/ML 3 ML PEN SC SCH (21:32)
[2021-09-01] MEDS: ACETAMINOPHEN 325 MG TAB PO PRN ×2 (00:33→20:08)
[2021-09-01] MEDS: oxyCODONE HCL IR 5 MG TAB (IMMEDIATE RELEASE) PO PRN ×3 (02:14→14:48)
[2021-09-01] MEDS: LACTATED RINGER'S 1,000 ML IV SCH ×2 (03:03→10:43)
[2021-09-01] MEDS: HYDROmorphone INJ 1 MG/ML SYRINGE IV PRN ×3 (05:22→17:31)
[2021-09-01 07:13] LABS: Hematocrit (blood only) 37.2 % (42-52); Hemoglobin 12.1 g/dL (14.0-18.0); Mean Corpuscular Hemoglobin 30.4 pg (25-34); Mean Corpuscular Hgb Conc 32.5 g/dL (32-36); Mean Corpuscular Volume 93.5 fL (80-100); Mean Platelet Volume 10.3 fL (7.4-10.4); Platelet Count 267 K/uL (130-400); RDW Standard Deviation 48.1 fL (36.4-46.3); Red Blood Count 3.98 M/uL (4.7-6.1); White Blood Count 17.26 K/uL (4.8-10.8)
[2021-09-01 07:47] LABS: Albumin Level 3.1 gm/dl (3.4-5.0); BUN Creatinine Ratio 24.2 (10-20); Bilirubin,Total 0.8 mg/dl (0.2-1.0); Calcium 7.7 mg/dl (8.5-10.1); Creatinine Clr Calc Pharmacy 109.8 ml/min; Est GFR (African American) 110.3 ml/min; Est GFR (Non-African American) 95.2 ml/min; Potassium 3.9 mmol/L (3.5-5.1); Total Protein 6.1 gm/dl (6.0-8.3)
[2021-09-01] MEDS: amLODIPine BESYLATE 5 MG TAB PO SCH (08:33)
[2021-09-01] MEDS: INSULIN ASPART PER UNIT SC SCH ×4 (08:33→21:01)
[2021-09-01] MEDS: METOPROLOL TARTRATE 50 MG TAB PO SCH (08:34)
--- NOTE | 2021-09-01 09:07 | Hospitalist Progress Note ---
Date of Service September 01, 2021 Assessment & Plan (1) Gallstone pancreatitis: Plan: Situational hypertension secondary to above Possible chronic BP elevation given LAE on prior EKG ARF Hyperglycemia SOB-CTA Chest R/O PE LeukocytosisStill elevated, panculture Amlodipine, metoprolol 100 twice daily added Surgery on case s/p lap lo DVT prophylaxis. SCDs Re: Cholecystectomy, Resume a/c today SC Heparin 5000mg Q12 Full code ROS-No Headache, No Visual Changes, No Nausea, No Vomiting, No Fever, No Chills, No Neck Pain or Stiffness, No Chest Pain, No Palpitations, No SOB, No SMITH, No Cough, No Sputum, No Wheezing, positive abdominal Pain, No Diarrhea, No Hematemesis, No Hemoptysis, No Unexpected Weight Loss, No Flank pain, No Melena, No Hematochezia, No Frequency, No Urgency, No Burning, No Hematuria, No Rashes, No Diaphoresis. Appetite is Normal, No BM +Flatus Physical Exam Gen-AAO x 3, NAD, Afebrile Head-NCAT, EOMI, PERRLA, Anicteric Sclera, No Posterior Pharyngeal Erythema Neck-Supple, No JVD, No Thyromegaly, No Masses, No LAD, No Bruits Lungs-L Rales, No Rhonchi, No Wheezing, No Crepitus Chest-No S4, +S1, +S2, No S3, No Murmurs, No Rubs, No Gallops, No Ectopy Abdomen-Soft, Bowel Sounds Present, tender, non distended, No Hepatomegaly, No Splenomegaly, No Palpable Masses, No Rebound, No Rigidity, No Guarding Musculoskeletal-Full Range of Motion Bilaterally, No CVAT Extremities-No Cyanosis, No Clubbing, No Edema Nuero-Cranial Nerves II-XII grossly intact, Motor WNL, DTRs WNL, Strength WNL, Non Focal Psych-Normal Mood Admission and Anticipated Discharge Date Admission Date: August 28, 2021 Subjective Patient seen and examined. Still with some abdominal pain. Tolerating diet. No BM +flatus. RN reports SOB and Rales Results & Data Results & Data ([facility]) Vital Signs (Past 12 Hours) Vital Signs Temp Pulse Pulse Resp BP Pulse Ox 09/01/21 07:28 36.6 C 90 19 148/87 H 94 09/01/21 02:16 36.8 C 83 18 140/86 90 09/01/21 01:55 91 H 08/31/21 22:44 36.9 C 102 H 20 150/84 H 90
[2021-09-01] MEDS: HEPARIN SOD 5,000 UNIT/0.5 ML VIAL SQ SCH ×3 (09:40→23:29)
[2021-09-01 09:44] LABS: Base Excess ABG -2.1 mEq/L (-9-1.8); HCO3 ABG 23 mmol/L (19-24); Oxygen Saturation ABG 91.6 % (90-95); PCO2 ABG 38 mmHg (35-46); PO2 ABG 59 mmHg (80-95); pH ABG 7.39 (7.35-7.45)
[2021-09-01 09:55] LABS: Allen Test Pos (Pos)
[2021-09-01] MEDS ORDERED: OPTIRAY 320 125ml IV ONE (10:31)
[2021-09-01 10:44] LABS: Appearance Urine Clear (Clear); Bacteria Urine Automated Negative (Negative); Bilirubin Urine Negative (Negative); Blood Urine 1+ (Negative); Cast Urine Automated 0 /lpf (0-5); Color Urine Yellow; Epithelial Cell Urine Auto 20-30 /lpf (0-5); Glucose Urine UA Trace (Negative); Ketones Urine 1+ (Negative); Leukocyte Esterase Urine Negative (Negative); Nitrite Urine Negative (Negative); Protein Urine 1+ (Negative); RBC Urine Automated 0-4 /hpf (0-4); Specific Gravity Urine 1.023 (1.000-1.030); Urobilinogen Urine Negative (Negative)
--- NOTE | 2021-09-01 10:48 | CT Scan Report ---
CT ANGIOGRAM OF THE CHEST CLINICAL HISTORY: Atypical chest pain. Dyspnea. COMPARISON STUDY: Chest x-ray dated 08/28/2021. TECHNIQUE: Following the IV administration of 120 cc of Optiray 320, CT angiogram of the chest was pe rformed from the upper abdomen to the thoracic inlet utilizing the pulmonary embolus protocol. Images are reviewed in the axial, sagittal, and coronal planes. 3-D MIPS images are created and assessed. I V contrast was administered without complication. A dose lowering technique was utilized adhering to the principles of ALARA. CT DOSE: 480.57 mGy.cm FINDINGS: Thyroid: Imaged portions of the thyroid gland are normal in size and attenuation. Thoracic aorta: The thoracic aorta is normal in caliber and demonstrates standard 3-vessel arch anato my. No dissection is seen. Pulmonary vasculature: The pulmonary trunk is mildly dilated, measuring 3.4 cm in diameter. This sugg ests pulmonary artery hypertension. There are no filling defects identified in main, lobar, or segmen savanna pulmonary branches to suggest pulmonary embolus. The subsegmental branches cannot be assessed due to motion artifact. Heart: The heart is mildly enlarged and without pericardial effusion. Lungs and pleural spaces: Evaluation of the lung parenchyma is significantly degraded by motion artif act. There are moderate pleural effusions. Intralobular septal thickening is seen throughout both joel gs. There is multifocal airspace consolidation, most confluent in the upper lobes (right greater than left). The trachea and central airways are clear. Mediastinum: Enlarged subcarinal node measures 2.2 cm in short axis. Kym: Mildly enlarged hilar nodes measure up to 11 mm in short axis. Axillae: There is no axillary lymphadenopathy. Upper abdomen: A small hiatal hernia is noted. There is infiltration/edema in the upper abdomen just below the gastroesophageal junction. Skeletal structures: No lytic or blastic bony lesions are seen. IMPRESSION: 1. Motion compromised examination. 2. There is no evidence of pulmonary embolus in the main, lobar, or segmental pulmonary arteries. 3. Cardiomegaly with diffuse intralobular septal thickening. The appearance is typical for fluid over load/congestive failure. 4. Multifocal airspace consolidation is seen throughout both lungs with an upper lobe predominance. T his could represent pulmonary edema and/or multifocal pneumonia. Clinical correlation will be alee al. 5. Moderate pleural effusions. 6. Mildly enlarged mediastinal and hilar nodes are likely reactive. 7. There is infiltration/edema in the upper abdomen below the gastroesophageal junction. Correlate wi th clinical and laboratory findings for evidence of pancreatitis. ACT 112: Negative or not required by law. Electronically signed by: Nicolas Garcia M.D. 09/01/2021 10:46 AM
[2021-09-01] MEDS: ALBUT/IPRATROP 3MG/0.5MG NEB 3 ML VIAL NEB SCH ×4 (10:54→22:33)
[2021-09-01] MEDS ORDERED: PIPERACILL/TAZOBAC CONSULT ACTIVE PRN (11:06)
[2021-09-01] MEDS ORDERED: VANCOMYCIN CONSULT ACTIVE PRN (11:06)
[2021-09-01] MEDS ORDERED: PIPERACILLIN/TAZOBACTAM 4.5 GM in DEXTROSE 5% 100 ML IV SCH (11:15)
[2021-09-01] MEDS ORDERED: VANCOMYCIN HCL 1,000 MG in SODIUM CHLORIDE 0.9% 250 ML IV SCH (11:15)
[2021-09-01] MEDS ORDERED: VANCOMYCIN HCL 2,500 MG in SODIUM CHLORIDE 0.9% 500 ML IV ONE (11:30)
[2021-09-01] MEDS ORDERED: PIPERACILLIN/TAZOBACTAM 4.5 GM in DEXTROSE 5% 100 ML IV ONE (11:30)
[2021-09-01] MEDS: FUROSEMIDE 40 MG/4 ML VIAL IV SCH ×2 (12:44→23:28)
[2021-09-01 14:01] LABS: Influenza A virus by PCR Negative (Neg); Influenza B virus by PCR Negative (Neg); RSV by PCR Negative (Neg); SARS CoV2 RNA(COVID-19) InHosp NEGATIVE (Negative)
[2021-09-01] MEDS: PIPERACILLIN/TAZOBACTAM 3.375 GM in DEXTROSE 5% 100 ML IV SCH (17:31)
[2021-09-01] MEDS: METOPROLOL TARTRATE 100 MG TAB PO SCH (20:09)
[2021-09-01] MEDS: INSULIN GLARGINE SOLOSTAR 100 UNITS/ML 3 ML PEN SC SCH (20:09)
[2021-09-01] MEDS ORDERED: HYDROmorphone INJ 1 MG/ML SYRINGE IV PRN (23:55)
[2021-09-02] MEDS: oxyCODONE HCL IR 5 MG TAB (IMMEDIATE RELEASE) PO PRN ×3 (00:49→16:50)
[2021-09-02] MEDS: PIPERACILLIN/TAZOBACTAM 3.375 GM in DEXTROSE 5% 100 ML IV SCH ×3 (01:40→17:32)
[2021-09-02] MEDS: ALBUT/IPRATROP 3MG/0.5MG NEB 3 ML VIAL NEB SCH ×5 (02:29→20:00)
[2021-09-02] MEDS: HEPARIN SOD 5,000 UNIT/0.5 ML VIAL SQ SCH ×3 (06:08→22:12)
[2021-09-02 06:51] LABS: Basophils # (auto) 0.03 K/uL (0-0.2); Basophils % (auto) 0.2 %; Eosinophils # (auto) 0.27 K/uL (0-0.5); Eosinophils % (auto) 1.7 %; Hematocrit (blood only) 36.8 % (42-52); Hemoglobin 12.1 g/dL (14.0-18.0); Immature Granulocytes # (auto) 0.13 K/uL (0.00-0.02); Immature Granulocytes % (auto) 0.8 %; Lymphocytes # (auto) 1.11 K/uL (1.2-3.4); Lymphocytes % (auto) 6.8 %; Mean Corpuscular Hemoglobin 30.6 pg (25-34); Mean Corpuscular Hgb Conc 32.9 g/dL (32-36); Mean Corpuscular Volume 92.9 fL (80-100); Mean Platelet Volume 10.1 fL (7.4-10.4); Neutrophils # (auto) 13.41 K/uL (1.4-6.5); Neutrophils % (auto) 82.5 %; Platelet Count 239 K/uL (130-400); RDW Standard Deviation 47.8 fL (36.4-46.3); Red Blood Count 3.96 M/uL (4.7-6.1); White Blood Count 16.25 K/uL (4.8-10.8)
[2021-09-02 07:20] LABS: BUN Creatinine Ratio 15.4 (10-20); Bilirubin,Total 1.2 mg/dl (0.2-1.0); Est GFR (African American) 76.7 ml/min; Est GFR (Non-African American) 66.1 ml/min; Globulin 3.1 gm/dl (2.5-4.0); Potassium 3.4 mmol/L (3.5-5.1); Total Protein 6.1 gm/dl (6.0-8.3)
[2021-09-02] MEDS: amLODIPine BESYLATE 5 MG TAB PO SCH (08:01)
[2021-09-02] MEDS: METOPROLOL TARTRATE 100 MG TAB PO SCH ×2 (08:02→22:11)
[2021-09-02] MEDS: POTASSIUM CHLORIDE CRTAB 20 MEQ TABCR PO SCH ×3 (08:05→22:14)
[2021-09-02] MEDS: INSULIN ASPART PER UNIT SC SCH ×4 (08:48→22:10)
--- NOTE | 2021-09-02 09:46 | Hospitalist Progress Note ---
Date of Service September 02, 2021 Assessment & Plan (1) Gallstone pancreatitis: Plan: Situational hypertension secondary to above Possible chronic BP elevation given LAE on prior EKG ARF Hyperglycemia SOB-CTA Chest negative for PE, positive congestion, possible consolidations Leukocytosistrending down, pancultureno growth to date Amlodipine, metoprolol 100 twice daily added Continue diuresis Continue IV antibiotics Currently on 2 L of oxygen down from 4L yesterday Surgery on case s/p lap lo DVT prophylaxis. SCDs Re: Cholecystectomy, SC Heparin 5000mg Q12 Full code ROS-No Headache, No Visual Changes, No Nausea, No Vomiting, No Fever, No Chills, No Neck Pain or Stiffness, No Chest Pain, No Palpitations, positive SOB, No SMITH, No Cough, No Sputum, No Wheezing, positive abdominal Pain, No Diarrhea, No Hematemesis, No Hemoptysis, No Unexpected Weight Loss, No Flank pain, No Melena, No Hematochezia, No Frequency, No Urgency, No Burning, No Hematuria, No Rashes, No Diaphoresis. Appetite is Normal, No BM +Flatus Physical Exam Gen-AAO x 3, NAD, Afebrile Head-NCAT, EOMI, PERRLA, Anicteric Sclera, No Posterior Pharyngeal Erythema Neck-Supple, No JVD, No Thyromegaly, No Masses, No LAD, No Bruits Lungs-L Rales improved, no Rhonchi, No Wheezing, No Crepitus Chest-No S4, +S1, +S2, No S3, No Murmurs, No Rubs, No Gallops, No Ectopy Abdomen-Soft, Bowel Sounds Present, tender, non distended, No Hepatomegaly, No Splenomegaly, No Palpable Masses, No Rebound, No Rigidity, No Guarding Musculoskeletal-Full Range of Motion Bilaterally, No CVAT Extremities-No Cyanosis, No Clubbing, No Edema Nuero-Cranial Nerves II-XII grossly intact, Motor WNL, DTRs WNL, Strength WNL, Non Focal Psych-Normal Mood Admission and Anticipated Discharge Date Admission Date: August 28, 2021 Subjective Patient seen and examined. Still with some abdominal pain. Tolerating diet. No BM +flatus. Less SOB today Results & Data Results & Data ([facility]) Vital Signs (Past 12 Hours) Vital Signs Temp Pulse Pulse Pulse Resp BP Pulse Ox 09/02/21 08:13 36.7 C 91 H 16 146/87 H 92 09/02/21 07:51 84 09/02/21 07:37 90 17 96 09/02/21 02:31 86 14 96 09/02/21 01:51 36.8 C 75 18 142/87 H 97 09/02/21 01:41 82 09/01/21 22:44 36.9 C 86 18 139/83 91 09/01/21 22:33 97 H 24 91 Laboratory Results Reviewed
[2021-09-02] MEDS: FUROSEMIDE 40 MG/4 ML VIAL IV SCH ×2 (11:30→22:12)
[2021-09-02] MEDS: ACETAMINOPHEN 325 MG TAB PO PRN ×2 (11:36→19:37)
[2021-09-02] MEDS: INSULIN GLARGINE SOLOSTAR 100 UNITS/ML 3 ML PEN SC SCH (22:11)
[2021-09-03] MEDS: PIPERACILLIN/TAZOBACTAM 3.375 GM in DEXTROSE 5% 100 ML IV SCH ×2 (01:02→10:11)
[2021-09-03] MEDS: ACETAMINOPHEN 325 MG TAB PO PRN ×3 (01:02→13:56)
[2021-09-03] MEDS: ALUMINUM/MAGNESIUM/SIMETH (MAALOX MAX) 30 ML UDC PO PRN (01:02)
[2021-09-03] MEDS: HEPARIN SOD 5,000 UNIT/0.5 ML VIAL SQ SCH ×2 (05:07→13:54)
[2021-09-03 07:14] LABS: Hematocrit (blood only) 38.1 % (42-52); Hemoglobin 12.9 g/dL (14.0-18.0); Mean Corpuscular Hemoglobin 30.6 pg (25-34); Mean Corpuscular Hgb Conc 33.9 g/dL (32-36); Mean Corpuscular Volume 90.3 fL (80-100); Platelet Count 264 K/uL (130-400); RDW Standard Deviation 46.2 fL (36.4-46.3); Red Blood Count 4.22 M/uL (4.7-6.1); White Blood Count 14.85 K/uL (4.8-10.8)
[2021-09-03] MEDS: ALBUT/IPRATROP 3MG/0.5MG NEB 3 ML VIAL NEB SCH ×2 (07:15→10:09)
[2021-09-03 07:39] LABS: BUN Creatinine Ratio 19.5 (10-20); Calcium 8.1 mg/dl (8.5-10.1); Creatinine Clr Calc Pharmacy 86.1 ml/min; Est GFR (African American) 84.9 ml/min; Est GFR (Non-African American) 73.3 ml/min; Potassium 3.3 mmol/L (3.5-5.1)
[2021-09-03] MEDS: METOPROLOL TARTRATE 100 MG TAB PO SCH (08:36)
[2021-09-03] MEDS: amLODIPine BESYLATE 5 MG TAB PO SCH (08:36)
[2021-09-03] MEDS: INSULIN ASPART PER UNIT SC SCH ×2 (08:41→12:15)
[2021-09-03] MEDS: POTASSIUM CHLORIDE CRTAB 20 MEQ TABCR PO SCH ×2 (08:43→13:56)
--- NOTE | 2021-09-03 09:11 | Surgery Progress Note ---
Date of Service September 03, 2021 Assessment & Plan (1) Gallstone pancreatitis: Plan: POD 4 lap lo WBC slowly trending down bowel function slowly returning not yet ready for d/c Admission and Anticipated Discharge Date Admission Date: August 28, 2021 Subjective feels weak, BM yesterday, not much appetite Physical Exam Gastrointestinal (Abdomen): Inspection/Auscultation: + abdomen distended (mild) Percussion/Palpation: abdomen soft Results & Data ([facility]) Vital Signs (Past 12 Hours) Vital Signs Temp Pulse Pulse Pulse Resp BP BP 09/03/21 07:29 37.1 C 66 18 102/60 09/03/21 07:15 84 16 09/03/21 07:06 65 09/03/21 03:37 36.8 C 70 18 125/77 09/02/21 23:35 90 09/02/21 22:13 36.8 C 100 H 18 120/61 Pulse Ox 09/03/21 07:29 09/03/21 07:15 95 09/03/21 07:06 09/03/21 03:37 92 09/02/21 23:35 09/02/21 22:13 92 PG Care Time/CCT Total # of Minutes Spent Total Time Spent with Patient: Total time spent is greater than 50% in coordination of care (as documented) at patient's floor/unit and/or counseling patient: Coding Level of Care Code None Diagnoses Gallstone pancreatitis K85.10
--- NOTE | 2021-09-03 09:32 | Discharge Summary ---
Date of Service September 03, 2021 Admission HPI Per Admitting Provider History obtained from patient and records. Medical history significant for pancreatitis. Last confinement April [address] abdomen pelvis at that time showed low-attenuation focus identified in the pancreatic tail, possible IPMN versus small developing pseudocyst. Patient underwent outpatient EUS June 2020. No significant pathology in the ampulla or CBD. Hyperechoic material consistent with sludge in the gallbladder. Possible pancreatic pseudocyst. MRI recommended after 2 years. Patient referred to general surgery to discuss possible cholecystectomy as per documentation. [place] [facility] [place],. Elective laparoscopic cholecystectomy recommended. Patient noted achy upper abdominal pain reminiscent of pancreatitis attack with nausea symptoms after a chicken dinner last night. No emesis. No fever, no chills. No recent EtOH intake. Admits to fatty food intake over the last few weeks. Medical History as above Surgical History : None Family History : Hypertension Personal/Social history : Non-smoker, occasional EtOH intake, [employer] employee Admission Exam Per Admitting Provider GENERAL: Slightly uncomfortable, pleasant, obese, no respiratory distress SKIN: Normal color, warm HEENT: [place] palpebral conjunctivae, no ptosis, dry buccal mucosa NECK : Supple, no tenderness CHEST : CTA, no tenderness HEART : RRR, no obvious murmurs ABDOMEN: Some distention, epigastric tenderness EXTREMITIES : No LE swelling/tenderness, no other conspicuous deformities noted NEUROLOGIC : Coherent, no facial asymmetry, no other gross focality Principal Diagnosis Gallstone pancreatitis: HTN ARF Hyperglycemia SOB Leukocytosis Discharge Exam See below Discharge Data Allergies Allergy/AdvReac Type Severity Reaction Status Date / Time hornet venom AdvReac Severe Anaphylaxis Unverified 08/28/21 01:13 Consultations 08/27/21 23:52 ED Decision to Admit Stat 08/28/21 05:13 Consult Gastroenterology Routine 08/28/21 05:16 Consult General Surgery Routine Current Diagnoses Hypertensive urgency (08/28/21) Biliary acute pancreatitis without necrosis or infection (08/28/21) Acute kidney failure, unspecified (08/28/21) Tachycardia, unspecified (08/28/21) Encounter for other preprocedural examination (08/28/21) Encounter for prophylactic measures, unspecified (08/28/21) Allergies hornet venom Adverse Reaction (Severe, Unverified 08/28/21 01:13) Anaphylaxis Height/Weight/Isolation Height 5 ft 9 in Weight 97.7 kg Chemistry 09/02/21 09/03/21 06:18 06:37 Sodium 134 L 137 Potassium 3.4 L 3.3 L Chloride 101 100 Carbon Dioxide 31 29 Anion Gap 2 L 8 BUN 19 22 Creatinine 1.23 D 1.13 Glucose 165 H 116 H Urinalysis 09/01/21 09:00 Urine Color Yellow Urine Appearance Clear Urine pH 7.0 Ur Specific [place] 1.023 Urine Protein 1+ H Urine Glucose (UA) Trace H Urine Ketones 1+ H Urine Blood 1+ H Urine Nitrite Negative Urine Bilirubin Negative Microbiology 08/28/21 22:59 Blood Aerobic Blood Culture - Final No growth in Aerobic bottle after 5 days. 08/28/21 22:59 Blood Anaerobic Blood Culture - Final No growth in Anaerobic bottle after 5 days. 08/28/21 23:08 Blood Aerobic Blood Culture - Final No growth in Aerobic bottle after 5 days. 08/28/21 23:08 Blood Anaerobic Blood Culture - Final No growth in Anaerobic bottle after 5 days. 09/01/21 09:03 Blood Aerobic Blood Culture - Preliminary No growth in Aerobic bottle after 24 hours. 09/01/21 09:03 Blood Anaerobic Blood Culture - Preliminary No growth in Anaerobic bottle after 24 hours. 09/01/21 09:06 Blood Aerobic Blood Culture - Preliminary No growth in Aerobic bottle after 24 hours. 09/01/21 09:06 Blood Anaerobic Blood Culture - Preliminary No growth in Anaerobic bottle after 24 hours. Procedures Performed Operation Date: 08/30/21 07:15 Actual Procedures p Laparoscopic Cholecystectomy(Not Applicable) - Mono Alvarado, Ordered Studies 08/28/21 02:21 US gallbladder Urgent 08/28/21 09:34 MR MRCP Routine 09/01/21 08:20 CT angio chest PE protocol Stat Hospital Course (1) Gallstone pancreatitis: Situational hypertension secondary to above Possible chronic BP elevation given LAE on prior EKG ARF-resolved Hyperglycemia SOB-CTA Chest negative for PE, positive congestion, possible consolidations Leukocytosistrending down, pancultureno growth to date Amlodipine, metoprolol 100 twice daily added Stop diuresis Continue antibiotics on DC Currently on RA Surgery on case s/p lap lo, f/u in office DVT prophylaxis. SCDs Re: Cholecystectomy, SC Heparin 5000mg Q12 Full code ROS-No Headache, No Visual Changes, No Nausea, No Vomiting, No Fever, No Chills, No Neck Pain or Stiffness, No Chest Pain, No Palpitations, positive SOB, No SMITH, No Cough, No Sputum, No Wheezing, positive abdominal Pain, No Diarrhea, No Hematemesis, No Hemoptysis, No Unexpected Weight Loss, No Flank pain, No Melena, No Hematochezia, No Frequency, No Urgency, No Burning, No Hematuria, No Rashes, No Diaphoresis. Appetite is Normal, +BM +Flatus Physical Exam Gen-AAO x 3, NAD, Afebrile Head-NCAT, EOMI, PERRLA, Anicteric Sclera, No Posterior Pharyngeal Erythema Neck-Supple, No JVD, No Thyromegaly, No Masses, No LAD, No Bruits Lungs-L Rales improved, no Rhonchi, No Wheezing, No Crepitus Chest-No S4, +S1, +S2, No S3, No Murmurs, No Rubs, No Gallops, No Ectopy Abdomen-Soft, Bowel Sounds Present, tender, non distended, No Hepatomegaly, No Splenomegaly, No Palpable Masses, No Rebound, No Rigidity, No Guarding Musculoskeletal-Full Range of Motion Bilaterally, No CVAT Extremities-No Cyanosis, No Clubbing, No Edema Nuero-Cranial Nerves II-XII grossly intact, Motor WNL, DTRs WNL, Strength WNL, Non Focal Psych-Normal Mood Total Time Total Time Spent Total Time Spent (In Minutes): 45 mins Discharge Plan Discharge Items Patient Disposition: Home - Self-Care Reason For Visit: PANCREATITIS, ELEVATED BP Discharge Diagnosis: Gallstone pancreatitis: HTN ARF Hyperglycemia SOB Leukocytosis Condition on Discharge: Good Activity: Per Instructions section Lifting: No more than 10 pounds Bathing: No limitations Bathing Comment: may shower; no soaking in tubs/pools Sexual Activity: Wait until after follow-up appointment Exercise/Sports: Wait until after follow-up appointment Driving/Machine Use: no driving while taking narcotics for pain Weightbearing: Full weightbearing Non-emergency contact: Primary Care Provider and Surgeon Call non-emergency contact if: you have any medication questions, your pain is not controlled, your pain is worsening, your pain is concerning for you, you have a fever, your temperature is above 101.5, your wound has increased redness, your wound has increased drainage and your wound pain has increased Follow-up/Referrals: Mono Alvarado DO [Physician] - (Please call to schedule follow up in clinic within 2 weeks) Lazaro Darden DO [Primary Care Provider] - (Date & Time 09/07/2021 11:20 AM Provider Lazaro Darden DO Department [facility] ) Diet: Regular Addtl Attending Provider Instructions: You may remove your outer surgical dressings on 09/01/21. You have small white strips on underneath over your incisions called steri strips. You may shower with these on. They will tend to fall off on their own within 7-10days. Pending Studies at Discharge: Yes Studies:: surgical pathology Stand-Alone Forms: [facility], Smoking Cessation Medications and DC Order Prescriptions: New acetaminophen 325 mg Tablet 650 mg PO Q4H PRN (Reason: fever or pain) Qty: 100 RF: 0 ciprofloxacin HCl [Cipro] 500 mg tablet 500 mg PO BID Qty: 14 RF: 0 metronidazole 500 mg tablet 500 mg PO BID 7 Days Qty: 14 RF: 0 Continued ibuprofen 200 mg Tablet 800 mg PO TID PRN (Reason: Pain) RF: 0 Pepto-Bismol 262 mg Tablet 2 tab PO QID PRN (Reason: gi-upset) RF: 0 Discharge Orders: Discharge Order (Routine); Ordered 09/03/21 Ordered By: Ru Florez/Other Patient Handouts: Prediabetes, Low-Fat Cooking Tips, 5 Steps for Eating Healthier Admission Data Admit Date/Time: 08/28/21 02:24 Attending Provider: Ru Simeon Admit Provider: Owen Payne Primary Care Provider: Lazaro Darden Other Providers: Owen Payne ; Farhan Guzman ; Lea Yen ; Paulo Savage ; Anny Estrella ; Santana Hutton ; Kareem Lerma ; Vidhya Fonseca ; Jimmie Piña ; Perlita Estrella ; Piedad Garrett ; Payton Pagan ; Maritza Lemos ; Luciano Davies ; Frankie Carmona ; Andrew Paiz ; Wayne Farias ; Yvon Alejo Jr ; Pablito Ventura ; Andrea Jeffrey ; Lakisha Guaman ; Mono Alvarado ; Stevo Ulrich
[2021-09-03] MEDS: FUROSEMIDE 40 MG/4 ML VIAL IV SCH (10:12)
== END 2021-09-03 15:49 | disposition home or self-care (01) | DRG 418 ==
LOC: ED 22:10 → SUATTDRO 08-28 02:24 → EDINP 08-28 02:24 → 2N 08-28 15:25
DX: R73.9 Hyperglycemia, unspecified; I10 Essential (primary) hypertension; K85.10 Biliary acute pancreatitis without necrosis or infection; N17.9 Acute kidney failure, unspecified; K56.7 Ileus, unspecified